=== PATIENT | female | born 1955 | race Caucasian/White ===

== ENCOUNTER → 2017-11-11 | Outpatient (CLI) | payer OTHER ==
[~2017-11-11] MED LIST: BROM500T3 PO; FOLI1TAB57 PO; HYDR-3062 PO; OMG1KC PO
--- NOTE | 2017-11-13 22:24 | Diagnostic Imaging Report ---
Digital mammogram bilateral screening with tomosynthesis The study was compared to the prior exam of 03/30/2009. At this time, there are no current complaints. The current study was also evaluated with a Computer Aided Detection (CAD) system. FINDINGS: There are scattered fibroglandular densities in both breasts which could obscure a lesion. Overall, there does not appear to have been any significant change when compared to the prior exam. No primary or secondary sign of malignancy is noted. IMPRESSION: 1. There is no radiographic evidence for malignancy. 2. The patient should have her annual bilateral screening mammogram on schedule in November of 2018. ACR BI-RADS Category 1: Negative. Result letter will be mailed to the patient. Note: At least 10% of breast cancer is not imaged by mammography. Dictated by: Dictated on workstation # [id number]
== END ==
LOC: RAD 10:29
PROVIDERS: ATTEND Nurse Practitioner Community Health
DX: Z12.31 Encounter for screening mammogram for malignant neoplasm of breast (principal)
CPT/HCPCS: 77067

== ENCOUNTER 2017-11-29 05:34 | Outpatient (CLI) | payer OTHER ==
[~2017-11-29] VITALS: Ht 175.3 cm; Wt 129.3 kg
[~2017-11-29 05:34] MED LIST changes: -BROM500T3 PO; -FOLI1TAB57 PO; -OMG1KC PO
[2017-11-29] MEDS ORDERED: FOLI1TAB57 PO (13:40)
[2017-11-29] MEDS ORDERED: BROM500T3 PO (13:40)
[2017-11-29] MEDS ORDERED: OMG1KC PO (13:40)
== END 2017-11-29 13:41 | disposition home or self-care (01) ==
LOC: PREOP 05:34
PROVIDERS: ATTEND Internal Medicine
DX: Z01.818 Encounter for other preprocedural examination (principal)

== ENCOUNTER 2017-12-06 07:27 | Day surgery (SDC) | payer OTHER ==
--- NOTE | 2017-11-21 06:50 | HISTORY AND PHYSICAL ---
DATE OF SERVICE: Colonoscopy H and P HISTORY OF PRESENT ILLNESS: The patient is a 62-year-old white female, referred by Dr. Triplett, for screening colonoscopy. She was seen in the emergency room ER on 10/18/2017, due to some generalized abdominal pain. It was noted that she had some thickening in the ascending colon, felt to be either localized diverticulitis or colitis. She was placed on a bland diet and was not having any other infectious symptoms, so antibiotics were not recommended. She did not have any associated nausea. She did have evidence for cholelithiasis, but no CT findings for cholecystitis and her pain was lowered more where her ascending colonic thickening was noted than right upper quadrant. She reports that she has been on a diet with her significant other and she has lost 80 pounds over the past year and other than her episode in October, had actually been feeling better. She has had no bowel habit change and has noted no melena or bright red blood per rectum. PAST MEDICAL HISTORY: Significant for obesity. She is not currently taking any prescription medication, does take fish oil supplement and a multiple vitamin daily. FAMILY HISTORY: Father at the age of 75, complications from diabetes and a heart attack. Mother at the age of 75 as well with complications of COPD with significant smoking history. She has one sister with type 1 diabetes, three brothers, one of whom has diabetes. There are multiple family members who are factor V Leiden positive, but she is reportedly negative. SOCIAL HISTORY: She has a past [id number] smoking history, but quit in 2003. She reports 2 to 3 drinks per week with no past history of heavy alcohol consumption. PAST SURGICAL HISTORY: In the distant past, she had parotid tumor resection reportedly benign and had right lateral meniscal tear repair in 2014, per Dr. Austin. PHYSICAL EXAMINATION: GENERAL: Reveals a pleasant white female, appears to be in no acute distress. VITAL SIGNS: Initial blood pressure was 156/98, at the end of the interview, down to 140/88. HEENT: Unremarkable. Sclerae were nonicteric. There is no evidence for pallor. NECK: Revealed no JVD, adenopathy or bruits. CHEST: Clear to auscultation. CARDIOVASCULAR: Reveals a regular rate and rhythm without murmur, S3 or S4. ABDOMEN: Soft, supple without mass, organomegaly or tenderness. There is a small umbilical hernia that is reducible and nontender. No erythema or induration is noted. EXTREMITIES: Reveal no cyanosis, clubbing or edema. INDICATION: The patient was seen in the office on 11/11/2017. ASSESSMENT AND PLAN: The patient is set up for screening colonoscopy toward the end of November, earlier date was offered and she is set up for December 06. Prep instructions with Suprep kit were given and questions were answered. In reviewing her electronic medical record on today's evaluation, little over 40 minutes care time spent, 30 of it face to face. Other 10 to 15 minutes of staff time spent in setting up the procedure and going over prep instructions with the Suprep kit. I thank you for the referral of this pleasant lady. Job ID: [id number] DocumentID: [id number] Dictated Date: 11/12/2017 11:49:26 Clearance Cutter Date: 11/12/2017 13:40:26 Dictated By: STEFAN SAENZ MD MTDD
[~2017-12-06] VITALS: Ht 175.3 cm; Wt 129.3 kg
[~2017-12-06 07:27] MED LIST changes: +BROM500T3 PO; +FOLI1TAB57 PO; +OMG1KC PO
[2017-12-06] MEDS ORDERED: D5 LR IV SOLUTION 1,000 ML IV ONE (07:45)
[2017-12-06] MEDS ORDERED: D5 LR IV SOLUTION 1,000 ML IV STA (07:51)
[2017-12-06 07:54] VITALS: BP 127/76
[2017-12-06] MEDS ORDERED: NALOXONE 0.4 MG/ML 1 ML (NARCAN) VIAL IVP PRN (08:00)
[2017-12-06] MEDS ORDERED: LIDOCAINE JELLY 2% (XYLOCAINE) 5 ML TUBE MM PRN (08:00)
[2017-12-06] MEDS ORDERED: FLUMAZENIL (ROMAZICON) 0.1 MG/ML 5 ML VIAL INJ PRN (08:00)
[2017-12-06] MEDS ORDERED: MIDAZOLAM 2 MG/2 ML (VERSED) VIAL IVP PRN (08:00)
--- NOTE | 2017-12-06 08:01 | Pre-Op Note & Conscious Sedat ---
Pre-Operative Progress Note H&P Reviewed The H&P was reviewed, patient examined and no changes noted. Date H&P Reviewed: Dec 06, 2017 Time H&P Reviewed: 08:00 Conscious Sedation Pre-Proced ASA Class: 2 Airway Mallampati Classification: (choct[place] appropriate class) I. II. III, IV Lungs Heart ASA score ASA 1: a normal healthy patient ASA 2: a patient with a mild systemic disease (mid diabetes, controlled hypertension, obesity ASA 3: a patient with a severe systemic disease that limits activity (angina , COPD, prior Myocardial infarction) ASA 4: a patient with an incapacitating disease that is a constant threat to life (CHF, renal failure) ASA 5: a moribund patient not expected to survive 24 hrs. (ruptured aneurysm) ASA 6: a declared brain patient whose organs are being harvested. For emergent operations, add the letter E after the classification Grade 3 Sedation Plan: Analgesia, Amnesia, Plan communicated to team members, Discussed options with patient/fam, Discussed risks with patient/fam Note The patient is an appropriate candidate to undergo the planned procedure, sedation, and anesthesia. The patient immediately re-assessed prior to indication. STEFAN SAENZ MD Dec 06, 2017 08:01
[2017-12-06] MEDS ORDERED: MIDAZOLAM 2 MG/2 ML (VERSED) VIAL ONE (08:52)
[2017-12-06] MEDS ORDERED: fentaNYL INJECTION 100 MCG/2 ML AMP ONE (08:52)
[2017-12-06] MEDS ORDERED: LIDOCAINE JELLY 2% (XYLOCAINE) 5 ML TUBE ONE (08:53)
[2017-12-06] MEDS ORDERED: ONDANSETRON 4 MG/2 ML (SDV) Z0FRAN ONE (09:03)
[2017-12-06] MEDS: fentaNYL INJECTION 100 MCG/2 ML AMP IVP PRN ×2 (09:07→09:15)
[2017-12-06 09:40] VITALS: BP 151/66
[2017-12-06] MEDS ORDERED: ONDANSETRON 4 MG/2 ML (SDV) Z0FRAN IVP ONE (09:45)
[2017-12-06 10:10] VITALS: BP 133/76
[2017-12-06 10:35] VITALS: BP 133/76
--- NOTE | 2017-12-06 17:04 | OPERATIVE REPORT ---
DATE OF SERVICE: INDICATION FOR THE PROCEDURE: Screening colonoscopy. The patient was placed in left lateral decubitus position. Prior to undergoing colonoscopy, digital rectal evaluation was performed. Anal sphincter tone was normal with perianal reflexes intact. No abnormalities, no additional inspection of anal canal or distal rectal vault. The colonoscope was then inserted into the rectum under direct visualization, advanced to the cecum. The cecum was identified by identification of the ileocecal valve and cecal strap. Photographic documentation obtained. Careful inspection was made as the colonoscope withdrawn. The patient tolerated the procedure well. FINDINGS: There was no evidence for internal or external hemorrhoids. Present in the distal rectum was a diminutive 2 mm sessile polyp. It was photographed and biopsied and ablated with no subsequent blood loss. Remainder of the rectum was unremarkable. Moderate number of small to medium size diverticulum without evidence to suggest diverticulitis with moderate haustral hypertrophy. No other sigmoid colonic abnormalities were appreciated. The descending colon was unremarkable as was the transverse colon. Present in the distal ascending colon was a diminutive polyp. It was photographed, biopsied and ablated with no subsequent blood loss. Remainder of the ascending colon and cecum were unremarkable. ASSESSMENT: 1. Moderate diverticular disease confined to the sigmoid colon was present without evidence for diverticulitis. 2. Two diminutive polyps were removed, one from the distal rectum and one from the distal ascending colon via hot forceps with no subsequent blood loss. The previous CT noted findings of ascending colonic thickening/inflammatory change resolved with no endoscopic abnormalities noted in these areas today. I thank you for the referral of this pleasant lady. Job ID: [id number] DocumentID: [id number] Dictated Date: 12/06/2017 09:52:16 News Assistant Date: 12/06/2017 17:03:37 Dictated By: STEFAN SAENZ MD [facility]
== END 2017-12-06 10:35 | disposition home or self-care (01) ==
LOC: ENDO 07:27
PROVIDERS: ATTEND Internal Medicine
DX: Z12.11 Encounter for screening for malignant neoplasm of colon (principal); D12.2 Benign neoplasm of ascending colon; K62.1 Rectal polyp; K57.30 Diverticulosis of large intestine without perforation or abscess without bleeding; E66.9 Obesity, unspecified; Z68.41 Body mass index [BMI] 40.0-44.9, adult; Z87.891 Personal history of nicotine dependence
CPT/HCPCS: 88305

== ENCOUNTER → 2018-02-19 | Outpatient (CLI) | payer OTHER ==
[~2018-02-19] MED LIST changes: +IOHEXOL 350 MG/ML 150 ML (OMNIPAQUE 350) VIAL IV ONE; +NS 250 ML (IVPB) BAG IV ONE
--- NOTE | 2018-02-19 17:44 | Diagnostic Imaging Report ---
INDICATION: Chest pain x4 days. TECHNIQUE: CTA chest obtained with IV contrast bolus and axial slices and MIP reconstructions. COMPARISON: There is no previous study for comparison. FINDINGS: There are no enlarged mediastinal or hilar nodes. Pulmonary parenchymal vessels are opacified with no overt pulmonary emboli. The thoracic aorta shows no evidence of aneurysm or dissection. Great vessel origins are patent. There is a normal variant with the left vertebral artery arising directly from the arch. There are calcified nodes in the right hilum and subcarinal region, compatible with old granulomatous disease. There are calcified granulomata in the right lower lobe. There is no pleural or pericardial fluid. Visualized portions of the upper abdomen demonstrate multiple gallstones. There is fatty infiltration of the liver. Lung parenchymal windows demonstrate no pulmonary parenchymal infiltrates or masses, aside from the calcified granulomata in the right lower lobe mentioned above. Incidental note is made of a 1.3 cm right thyroid nodule, this can be followed sonographically. There are calcified granulomata in the spleen. IMPRESSION: No CT evidence of pulmonary emboli or aortic dissection. Old granulomatous changes. No focal infiltrate or pleural fluid. Incidental note is made of a 1.3 cm nodule in the right thyroid lobe, this can be followed with thyroid ultrasound. Fatty infiltration of the liver. Cholelithiasis. Dictated by: Dictated on workstation # [id number]
== END ==
LOC: RAD 15:28
PROVIDERS: ATTEND Internal Medicine
DX: R07.9 Chest pain, unspecified (principal); K80.20 Calculus of gallbladder without cholecystitis without obstruction; K76.0 Fatty (change of) liver, not elsewhere classified; E04.1 Nontoxic single thyroid nodule
CPT/HCPCS: 71275

== ENCOUNTER → 2018-03-20 | Outpatient (CLI) | payer OTHER ==
[~2018-03-20] MED LIST changes: -IOHEXOL 350 MG/ML 150 ML (OMNIPAQUE 350) VIAL IV ONE; -NS 250 ML (IVPB) BAG IV ONE
== END ==
LOC: CARD 09:32
PROVIDERS: ATTEND Internal Medicine Interventional Cardiology
DX: R94.31 Abnormal electrocardiogram [ECG] [EKG] (principal); R07.89 Other chest pain; R73.03 Prediabetes; E78.5 Hyperlipidemia, unspecified; I10 Essential (primary) hypertension; E66.01 Morbid (severe) obesity due to excess calories; Z68.41 Body mass index [BMI] 40.0-44.9, adult
CPT/HCPCS: 93306

== ENCOUNTER → 2018-03-27 | Outpatient (CLI) | payer OTHER ==
[~2018-03-27] VITALS: Ht 172.7 cm; Wt 133.8 kg
[~2018-03-27] MED LIST changes: +CATHETER FLUSH 10 ML SYR IV PRN; +REGADENOSON 0.4 MG/5 ML SYR (LEXISCAN) IV ONE
[2018-03-27 09:11] VITALS: BP 158/80
[2018-03-27 09:25] VITALS: BP 167/92
--- NOTE | 2018-03-31 11:23 | Cardiology Stress Test Report ---
Stress Test Report Type of NM Stress Test: Test Type: LEXISCAN 0.4MG/5ML Date of Procedure/Referring: Date of Procedure: Mar 27, 2018 PCP Krystal Oneal MD Admitting Physician Kristie Knox MD Indications: Chest pain, abnormal EKG Baseline Heart Rate: 74 Baseline Blood Pressure: Blood Pressure Systolic: 167 Blood Pressure Diastolic: 92 Baseline EKG: Baseline EKG: sinus rhythm Summary & Conclusion: Summary: The patient was brought to the stress lab after informed consent was taken. Stress test was performed according to the Lexiscan protocol. 0.4 mg of IV Lexiscan was given. Low-grade exercise was performed. Baseline EKG showed sinus rhythm at 74 BPM. Initial blood pressure was 166/88 mmHg. Maximum heart rate was 115 bpm and blood pressure 174/90 mmHg. Patient did not have any chest pain, arrhythmias or ST segment changes during the stress test. 10.53 mCi of Myoview were given for rest imaging and 31.2 mCi of Myoview given for stress imaging. Transient ischemic dilatation score 1.07, EF 64 percent. Normal wall motion. Mild intensity, intermediate size anterior/apical reversible defect. SSS 11. Conclusion: Pharmacological stress test was negative for ischemia. Normal LV function with no wall motion abnormalities. Evidence of anterior-apical ischemia, coronary angiography is recommended. Krystal ONEAL MD Mar 31, 2018 11:23
== END ==
LOC: CARD 07:31
PROVIDERS: ATTEND Internal Medicine Interventional Cardiology
DX: R94.31 Abnormal electrocardiogram [ECG] [EKG] (principal); R07.89 Other chest pain; E78.5 Hyperlipidemia, unspecified; I10 Essential (primary) hypertension; R73.03 Prediabetes; E66.01 Morbid (severe) obesity due to excess calories; Z68.41 Body mass index [BMI] 40.0-44.9, adult
CPT/HCPCS: 78452; 93017

== ENCOUNTER 2018-04-07 07:51 | Day surgery (SDC) | payer OTHER ==
[2018-04-07] VITALS (10 sets, daily range): BP systolic 129–144; BP diastolic 73–103
[~2018-04-07] VITALS: Ht 172.7 cm; Wt 133.8 kg
[~2018-04-07 07:51] MED LIST changes: -CATHETER FLUSH 10 ML SYR IV PRN; -REGADENOSON 0.4 MG/5 ML SYR (LEXISCAN) IV ONE
--- OUTSIDE RECORDS SUMMARY | 2018-04-07 07:54 | XMS REPORT ---
Author Author PIA MAURICIO [facility] Address [address] [place] [id number] Care Team Providers Care Auto Carrier Driver Name Role Phone PIA MAURICIO Unavailable PROBLEMS Type Condition ICD9-CM Code XCT78-ND Code Onset Dates Condition Status SNOMED Code Problem PPV23 (PNEUMOVAX) DX V03.82 Active 78179635 Problem Need for prophylactic vaccination and inoculation, Influenza V04.81 Active 233522840 Problem ZOSTAVAX DX V05.8 Active 21148423 Problem DTAP TEST V06.1 Active ALLERGIES No Information ENCOUNTERS Encounter Location Date Diagnosis [facility] [address] [address] Mar, 2018 Encounter for immunization Z23 [facility] [address] [id number] [place] [address] Feb Encounter for immunization Z23 [facility] [address] [address] October, [facility] [id number] [place] [address] Jul, Dental examination Z01.20 [facility] [id number] [place] [address] [id number] Jul, Dental caries K02.9 and Tooth fracture with loss of restorative material K08.531 [facility] [address] [id number] Jun, Dental examination Z01.20 [facility] [id number] [place] [address] Jun, [facility] [address] [id number] Jun, Pneumonia of left upper lobe due to infectious organism J18.1 ; BMI 40.0-44.9, adult Z68.41 and Cough R05 [facility] [id number] [place] [phone] Apr, [facility] [id number] [place] [address] [id number] Mar, Encounter for immunization Z23 [facility] [address] [address] Jan, [facility] [address] [address] Jul, Dental examination Z01.20 [facility] [id number] [place] [address] [id number] Jul, Encounter for immunization Z23 [facility] [address] [id number] Mar, Encounter for immunization Z23 [facility] [id number] [place] [address] [phone] Dec, Visit for TB skin test Z11.1 [facility] [id number] [place] [address] [phone] October, Other specified disorders of Eustachian tube, unspecified ear H69.80 and Chronic serous otitis media of both ears H65.23 [facility] [id number] [place] [address] [phone] October, [facility] [id number] [place] [address] [id number] Sep, Osteoarthritis of right knee M17.9 [facility] [id number] [place] [address] Aug, [facility] [address] [place] [address] [id number] Aug, Encounter for dental examination Z01.20 [facility] [address] [id number] [phone] May, Encounter for dental examination Z01.20 [facility] [id number] [place] [address] [id number] May, Dental examination Z01.20 [facility] [id number] [place] [phone]- [phone] Mar, Encounter for immunization Z23 [facility] [id number] [place] [address] [id number]- [phone] Mar, [facility] [id number] [place] [address] Mar, Edema, unspecified R60.9 [facility] [id number] [place] [address] [id number] Feb, Dental examination V72.2 [facility] [id number] [place] [address] Jan, Pain in right knee 719.46 and Fall at home E888.9 [facility] [id number] [place] [address] Jan, [facility] [id number] [place] [address]- [address] Jan, Knee pain, right 719.46 [facility] [id number] [place] [address]- [address] Jan, Knee pain, right 719.46 [facility] [id number] [place] [id number] 2546 Jan, Arthritis of left hand 716.94 [facility] [id number] [place] [address] [id number] Dec, Dental examination V72.2 [facility] [id number] [place] [address] [phone]- [address] 14 Sep, 2014 [facility] [id number] [place] [address] Sep, [facility] [place] [facility] [address] [id number] [place] [address] Jul, [facility] [place] [facility] [address] [id number] [id number] Jul, [facility] [place] [facility] [address] [id number] [place] [address] Jul, [facility] [place] [facility] [address] [id number] [place] [address] Jul, [facility] [place] [facility] [address] [id number] [place] [address] May, [facility] [place] [facility] [address] [id number] [place] [address] May, [facility] [place] [facility] [address] [id number] [place] [address] Feb, [facility] [place] [facility] [address] [id number] [place] [address] Feb, [facility] [place] [facility] [address] [id number] [place] [address] October, [facility] [place] [facility] [address] [id number] [place] [address] October, [facility] [place] [facility] [address] [id number] [place] [address] October, [facility] [place] [facility] [address] [id number] [place] [address] October, [facility] [place] [facility] [address] [id number] [place] [address] October, [facility] [place] [facility] [address] [id number] [place] Aug, [facility] [place] [facility] [address] [id number] [id number] [address] Aug, [facility] [place] [facility] [address] [facility] [id number] [place] [address] Mar, [facility] [address] [id number] [address] Apr, [facility] [address] [id number] [address] Apr, [facility] [address] [id number] [address] Dec, [facility] [address] [id number] [address] Nov, [facility] [address] [id number] [address] October, [facility] [address] [id number] [address] October, IMMUNIZATIONS Vaccine Route Administration Date Status FLULAVAL QUAD 0.5ML (6 MO & UP) 2018 IM Intramuscular Mar 03, 2018 Administered SOCIAL HISTORY Never Assessed REASON FOR VISIT Flu shot-GABE Wang PLAN OF CARE VITAL SIGNS MEDICATIONS Unknown Medications RESULTS No Results PROCEDURES Procedure Date Ordered Result Body Site FLULAVAL QUAD 0.5ML (6 MO AND UP) 2018 Mar 03, 2018 SINGLE IMMUNIZATION ADMIN Mar 03, 2018 INSTRUCTIONS MEDICATIONS ADMINISTERED No Known Medications MEDICAL (GENERAL) HISTORY Type Description Date Medical History Mitral Valve Prolapse Surgical History tubal 1992 Surgical History parotid tumor left side 1996 Hospitalization History parotid tumor 1996
--- OUTSIDE RECORDS SUMMARY | 2018-04-07 07:54 | XMS REPORT ---
Author Author OLIVERIO Arguelles Organization [facility] Address [address] [place] [address] Care Team Providers Care Supervisor Powdered Metal Name Role Phone OLIVERIO Arguelles Unavailable PROBLEMS Type Condition ICD9-CM Code [id number] Code Onset Dates Condition Status SNOMED Code Problem PPV23 (PNEUMOVAX) DX V03.82 Active 25124024 Problem Need for prophylactic vaccination and inoculation, Influenza V04.81 Active 217837138 Problem ZOSTAVAX DX V05.8 Active 51817341 Problem DTAP TEST V06.1 Active ALLERGIES Substance Reaction Event Type Date Status Penicillin V Potassium Unknown Drug Allergy Jul, Active ENCOUNTERS Encounter Location Date Diagnosis [facility] [place] [id number] [place] [address] 64524- [address]502 October, [facility] [place] [address] [address]- [address]98 Jul, Dental examination Z01.20 [facility] [id number] [place] [address] [id number] Jul, Dental caries K02.9 and Tooth fracture with loss of restorative material K08.531 [facility] [id number] [place] [address] [id number] Jun, Dental examination Z01.20 [facility] [place] [id number] [place] [address] 56761- 7866 Jun, [facility] [address] [id number] Jun, Pneumonia of left upper lobe due to infectious organism J18.1 ; BMI 40.0-44.9, adult Z68.41 and Cough R05 [facility] [place] [address] [place] [address] Apr, [facility] [id number] [place] [address] [id number] Mar, Encounter for immunization Z23 [facility] [place] [id number] [place] [address] 94684- 2546 Jan, [facility] [place] [id number] [place] [address] 73677- 5166 Jul, Dental examination Z01.20 [facility] [id number] [place] [address] [id number] Jul, Encounter for immunization Z23 [facility] [id number] [place] [address] [id number] Mar, Encounter for immunization Z23 [facility] [place] [id number] [place] [address] 29670- 2966 Dec, Visit for TB skin test Z11.1 [facility] [id number] [place] [address] [id number] October, Other specified disorders of Eustachian tube, unspecified ear H69.80 and Chronic serous otitis media of both ears H65.23 [facility] [place] [address] [place] [address] 35689- 6506 October, [facility] [place] [address] [place] [address] [phone] Sep, Osteoarthritis of right knee M17.9 [facility] [place] [id number] [place] [address] [phone] Aug, [facility] [address] [place] [address] [id number] Aug, Encounter for dental examination Z01.20 [facility] [address] [phone] May, Encounter for dental examination Z01.20 [facility] [id number] [place] [address] [phone] May, Dental examination Z01.20 [facility] [place] [address] [address] 5758 Mar, Encounter for immunization Z23 [facility] [place] [id number] [place] [address] 253496- 5626 Mar, [facility] [place] [id number] [place] [address] 84040- 7896 Mar, Edema, unspecified R60.9 [facility] [id number] [place] [address] [phone] Feb, Dental examination V72.2 [facility] [place] [id number] [place] [address] 87473- 1046 Jan, Pain in right knee 719.46 and Fall at home E888.9 [facility] [place] [id number] [place] [address] 06956- 9425 Jan, [facility] [place] [id number] [place] [address] 09535- 3341 Jan, Knee pain, right 719.46 [facility] [place] [id number] [place] [address] 59347- 3978 Jan, Knee pain, right 719.46 [facility] [place] [id number] [place] [address] 03300- 3616 Jan, Arthritis of left hand 716.94 [facility] [id number] [place] [address] [phone] Dec, Dental examination V72.2 [facility] [place] [id number] [place] [address] [phone]- [phone] Sep, [facility] [place] [id number] [place] [address] 302926- 6761 Sep, [facility] [place] [id number] [place] [address] 30985- 4518 Jul, [facility] [place] [facility] [address] [id number] [place] [address]- 7292 Jul, [facility] [place] [facility] [address] [id number] [place] [address]- 0056 Jul, [facility] [place] [facility] [address] [id number] [place] [address]- 9112 Jul, [facility] [place] [facility] [address] [id number] [place] [address] May, [facility] [place] [facility] [address] [id number] [place] [address]- 5240 May, [facility] [place] [facility] [address] [id number] [place] [address]- 8071 Feb, [facility] [place] [facility] [address] [id number] [place] [address]- 3062 Feb, [facility] [place] [facility] [address] [id number] [place] [address]- 3476 October, [facility] [place] [facility] [address] [id number] [place] [address]- 7586 October, [facility] [place] [facility] [address] [id number] [place] [address]- 4920 October, [facility] [place] [facility] [address] [id number] [place] [address]- 4432 October, [facility] [place] [facility] [address] [id number] [place] [address]- 8433 October, [facility] [place] [facility] [address] [id number] [place] [address] Aug, [facility] [place] [facility] [address] [id number] [place] [address]- 1823 Aug, [facility] [place] [facility] [address] [id number] [place] Mar, [facility] [place] [facility] [address] [id number] [place] [address]- 5006 Apr, [facility] [place] [address] [facility] [id number] [place] [address]- 2546 Apr, [facility] [place] [address] [facility] [id number] [address]- 2546 Dec, [facility] [place] [address] [facility] [id number] [place] [address]- 2546 Nov, [facility] [place] [address] [facility] [id number] [place] [address]- 2546 October, [facility] [place] [address] [facility] [id number] [place] [address]- 2546 October, IMMUNIZATIONS No Known Immunizations SOCIAL HISTORY Never Assessed REASON FOR VISIT PLAN OF CARE Activity Details Follow Up prn Reason:restorative VITAL SIGNS MEDICATIONS Medication Instructions Dosage Frequency Start Date End Date Duration Status Ventolin HFA 108 (90 Base) MCG/ACT Inhalation every 6 hrs 2 puffs as needed 6h Jun, Not-Taking Zofran 8 MG Orally q 8 hours prn nausea 1 tablet Apr, 10 days Not-Taking Sudafed 60 mg Orally every 12 hrs 1 tablet as needed 12h October, Not-Taking RESULTS No Results PROCEDURES Procedure Date Ordered Result Body Site [facility] Employee/Board adjustment Aug 07, 2017 COMP ORAL EVALUATION - NEW/EST PT Aug 07, 2017 INTRAORL-PERIAPICAL 1 FILM 44811 Aug 07, 2017 PANORAMIC FILM SEE ALSO CODE 18964 Aug 07, 2017 BITEWINGS - FOUR FILMS Aug 07, 2017 Billing Notes on claim Aug 07, 2017 INTRAORL-PERIAPICAL EA ADD FILM Aug 07, 2017 INTRAORL-PERIAPICAL EA ADD FILM Aug 07, 2017 INTRAORL-PERIAPICAL EA ADD FILM Aug 07, 2017 INTRAORL-PERIAPICAL EA ADD FILM Aug 07, 2017 INSTRUCTIONS MEDICATIONS ADMINISTERED No Known Medications MEDICAL (GENERAL) HISTORY Type Description Date Medical History Mitral Valve Prolapse Surgical History tubal 1991 Surgical History parotid tumor left side 1996 Hospitalization History parotid tumor 1996
--- OUTSIDE RECORDS SUMMARY | 2018-04-07 07:54 | XMS REPORT ---
Author LEROY Hassan [facility] eClinicalWorks Address Unknown Phone Unavailable Care Team Providers Care Molding Technician Name Role Phone LEROY VARGAS CP Unavailable Allergies No Known Allergies Problems Problem Type Condition Code Onset Dates Condition Status Problem ZOSTAVAX DX V05.8 Active Problem Need for prophylactic vaccination and inoculation, Influenza V04.81 Active Problem PPV23 (PNEUMOVAX) DX V03.82 Active Problem DTAP TEST V06.1 Active Assessment Encounter for immunization Z23 Active Medications No Known Medications Procedures Procedure Coding System Code Date SINGLE IMMUNIZATION ADMIN CPT-4 45633 Mar 31, 2015 FLUARIX QUAD (3 & UP)-GSK-2014 CPT-4 84737 Mar 31, 2015 Results No Known Results Immunizations Vaccine Administration Date FLUARIX QUAD (3 & UP)-GSK-2014Mar 31, 2015 Summary Purpose eClinicalWorks Submission
--- OUTSIDE RECORDS SUMMARY | 2018-04-07 07:54 | XMS REPORT ---
Author Author YESENIA Maurice Organization [facility] Address [address] [place] [address] Care Team Providers Care Head Of Precision Targeting Name Role Phone YESENIA Maurice Unavailable PROBLEMS Type Condition ICD9-CM Code [id number] Code Onset Dates Condition Status SNOMED Code Problem PPV23 (PNEUMOVAX) DX V03.82 Active 82946878 Problem Need for prophylactic vaccination and inoculation, Influenza V04.81 Active 686710223 Problem ZOSTAVAX DX V05.8 Active 25439091 Problem DTAP TEST V06.1 Active ALLERGIES No Information ENCOUNTERS Encounter Location Date Diagnosis [facility] [address] [address]- [address] October, [facility] [address] [address]- [address] 28 Jul, 2017 Dental examination Z01.20 [facility] [address] [id number] Jul, Dental caries K02.9 and Tooth fracture with loss of restorative material K08.531 [facility] [address] [id number] Jun, Dental examination Z01.20 [facility] [address] [address]- [address]120 Jun, [facility] [place] [address] [id number] Jun, Pneumonia of left upper lobe due to infectious organism J18.1 ; BMI 40.0-44.9, adult Z68.41 and Cough R05 [facility] [address] [address]- 9180 Apr, [facility] [address] [id number] Mar, Encounter for immunization Z23 [facility] [id number] [place] [address] 97539- 2546 Jan, [facility] [id number] [place] [address] 25418- 2546 Jul, Dental examination Z01.20 [facility] [id number] [place] [address] [id number] Jul, Encounter for immunization Z23 [facility] [place] [id number] [place] [address] [id number] Mar, Encounter for immunization Z23 [facility] [id number] [place] [address] 01417- 2546 Dec, Visit for TB skin test Z11.1 [facility] [place] [id number] [place] [address] [phone] October, Other specified disorders of Eustachian tube, unspecified ear H69.80 and Chronic serous otitis media of both ears H65.23 [facility] [id number] [place] [address] 77842- 0646 October, [facility] [id number] [place] [address] [phone]- 2976 Sep, Osteoarthritis of right knee M17.9 [facility] [id number] [place] [address] 954295- 9353 Aug, [facility] [address] [id number] Aug, Encounter for dental examination Z01.20 [facility] [address] [place] [address] [phone] May, Encounter for dental examination Z01.20 [facility] [address] [id number] May, Dental examination Z01.20 [facility] [id number] [place] [address] 72805- 7809 22 Mar, 2015 Encounter for immunization Z23 [facility] [id number] [place] [address] 21015- 7753 14 Mar, 2015 [facility] [id number] [place] [address] 81873- 9085 Mar, Edema, unspecified R60.9 [facility] [address] [id number] Feb, Dental examination V72.2 [facility] [address] 89810- 2250 Jan, Pain in right knee 719.46 and Fall at home E888.9 [facility] [id number] [place] [address] 43384- 6501 Jan, [facility] [id number] [place] [address] 57251- 7380 Jan, Knee pain, right 719.46 [facility] [address] [address]90- 1253 Jan, Knee pain, right 719.46 [facility] [id number] [place] [address] 73427- 4341 Jan, Arthritis of left hand 716.94 [facility] [id number] [place] [address] [phone] Dec, Dental examination V72.2 [facility] [id number] [place] [address] 04474- 3994 Sep, [facility] [id number] [place] [address] 35668- 3503 Sep, [facility] [id number] [place] [address] 83658- [phone] Jul, [facility] [id number] [place] [address] 12898- 8081 Jul, [facility] [address] [id number] [place] [address]- 4783 Jul, [facility] [place] [facility] [address] [id number] [place] [address]- 5919 Jul, [facility] [place] [facility] [address] [id number] [place] [address]- 0117 May, [facility] [place] [facility] [address] [id number] [place] [address]- 7586 May, [facility] [place] [facility] [address] [id number] [place] [address]- 7389 Feb, [facility] [place] [facility] [address] [id number] [place] [address]- 7767 Feb, [facility] [place] [facility] [address] [id number] [place] [address]- 5272 October, [facility] [place] [facility] [address] [id number] [place] [address]- 0141 October, [facility] [place] [facility] [address] [id number] [place] [address]- 5282 October, [facility] [place] [facility] [address] [facility] [id number] [place] [address]- 9461 October, [facility] [place] [facility] [address] [id number] [place] [address]- 8117 October, [facility] [place] [facility] [address] [id number] [address]- 8667 Aug, [facility] [place] [facility] [address] [id number] [place]- 9132 Aug, [facility] [place] [facility] [address] [facility] [id number] [place] [address]- 5864 Mar, [facility] [place] [facility] [address] [facility] [id number] [place] [address]- 4268 Apr, [facility] [place] [facility] [address] [facility] [id number] [place] [address]- 2546 Apr, [facility] [address] [facility] [id number] [address]- 2546 Dec, [facility] [address] [facility] [id number] [address]- 2546 Nov, [facility] [address] [facility] [id number] [address]- 2546 October, [facility] [address] [facility] [id number] [address]- 4986 October, IMMUNIZATIONS No Known Immunizations SOCIAL HISTORY Never Assessed REASON FOR VISIT nausea PLAN OF CARE VITAL SIGNS MEDICATIONS Medication Instructions Dosage Frequency Start Date End Date Duration Status Zofran 8 MG Orally Twice a day prn nausea 1 tablet October, 30 day(s) Active RESULTS No Results PROCEDURES No Known procedures INSTRUCTIONS MEDICATIONS ADMINISTERED No Known Medications MEDICAL (GENERAL) HISTORY Type Description Date Medical History Mitral Valve Prolapse Surgical History tubal 1991 Surgical History parotid tumor left side 1996 Hospitalization History parotid tumor 1997
--- OUTSIDE RECORDS SUMMARY | 2018-04-07 07:55 | XMS REPORT ---
Author Author YESENIA IRIZARRY [facility] eClinicalWorks Address Unknown Phone Unavailable Care Team Providers Care Typesetting Machine Tender Name Role Phone YESENIA IRIZARRY CP Unavailable Allergies No Known Allergies Problems Problem Type Condition Code Onset Dates Condition Status Problem ZOSTAVAX DX V05.8 Active Problem Need for prophylactic vaccination and inoculation, Influenza V04.81 Active Problem PPV23 (PNEUMOVAX) DX V03.82 Active Problem DTAP TEST V06.1 Active Assessment Encounter for immunization Z23 Active Medications No Known Medications Procedures Procedure Coding System Code Date SINGLE IMMUNIZATION ADMIN CPT-4 34228 Mar 15, 2016 FLUARIX QUAD P-FREE 3 AND UP .50 2015 CPT-4 41231 Mar 15, 2016 Results No Known Results Immunizations Vaccine Administration Date FLUARIX QUAD P-FREE 3 AND UP .50 2015Mar 15, 2016 Summary Purpose eClinicalWorks Submission
--- OUTSIDE RECORDS SUMMARY | 2018-04-07 07:55 | XMS REPORT ---
Author Author YESENIA IRIZARRY Organization eClinicalWorks Address Unknown Phone Unavailable Care Team Providers Care Aurist Name Role Phone YESENIA IRIZARRY CP Unavailable Allergies No Known Allergies Problems Problem Type Condition ICD-9 Code Onset Dates Condition Status Problem ZOSTAVAX DX V05.8 Active Problem Need for prophylactic vaccination and inoculation, Influenza V04.81 Active Problem PPV23 (PNEUMOVAX) DX V03.82 Active Problem DTAP TEST V06.1 Active Assessment Knee pain, right 719.46 Active Medications No Known Medications Procedures Procedure Coding System Code Date X-RAY EXAM OF KNEE, 3 CPT-4 57529 Feb 04, 2015 Results No Known Results Summary Purpose eClinicalWorks Submission
--- OUTSIDE RECORDS SUMMARY | 2018-04-07 07:55 | XMS REPORT ---
Author Author YESENIA IRIZARRY [facility] Address [address] [place] [address] Care Team Providers Care Furniture Repair Technician Name Role Phone WANDA IRIZARRYYL Unavailable PROBLEMS Type Condition ICD9-CM Code PHZ97-RI Code Onset Dates Condition Status SNOMED Code Problem PPV23 (PNEUMOVAX) DX V03.82 Active 60463437 Problem Need for prophylactic vaccination and inoculation, Influenza V04.81 Active 837790907 Problem ZOSTAVAX DX V05.8 Active 39683953 Problem DTAP TEST V06.1 Active ALLERGIES No Information ENCOUNTERS Encounter Location Date Diagnosis [facility] [address] [address] October, [facility] [address] [address] Jul, Dental examination Z01.20 [facility] [address] [id number] Jul, Dental caries K02.9 and Tooth fracture with loss of restorative material K08.531 [facility] [address] [id number] Jun, Dental examination Z01.20 [facility] [address] [address] Jun, [facility] [address] [id number] Jun, Pneumonia of left upper lobe due to infectious organism J18.1 ; BMI 40.0-44.9, adult Z68.41 and Cough R05 [facility] [address] [address] Apr, [facility] [address] [id number] [id number] Mar, Encounter for immunization Z23 [facility] [id number] [place] [address]- [address] Jan, [facility] [address] [place] [address]- 2546 Jul, Dental examination Z01.20 [facility] [id number] [place] [address] [id number] Jul, Encounter for immunization Z23 [facility] [id number] [place] [address] [id number] Mar, Encounter for immunization Z23 [facility] [id number] [place] [address]- 2546 Dec, Visit for TB skin test Z11.1 [facility] [id number] [place] [address] [id number] October, Other specified disorders of Eustachian tube, unspecified ear H69.80 and Chronic serous otitis media of both ears H65.23 [facility] [id number] [place] [address]- 270[address] October, [facility] [id number] [place] [address] 17[address]- 2143 Sep, Osteoarthritis of right knee M17.9 [facility] [address] [place] [address]- [address] Aug, [facility] [address] [phone] Aug, Encounter for dental examination Z01.20 [facility] [address] [place] [address] [id number] May, Encounter for dental examination Z01.20 [facility] [address] [phone] May, Dental examination Z01.20 [facility] [address], [place] [address] Mar, Encounter for immunization Z23 [facility] [id number] [place] [address] 60762- 65[address] Mar, [facility] [id number] [place] [address]- [address] Mar, Edema, unspecified R60.9 [facility] [id number] [place] [address] [phone] Feb, Dental examination V72.2 [facility] [id number] [place] [address] 14[address]- 9[address] Jan, Pain in right knee 719.46 and Fall at home E888.9 [facility] [id number] [place] [address] 89[address]- 1309 Jan, [facility] [id number] [place] [address] 97353- 0708 Jan, Knee pain, right 719.46 [facility] [id number] [place] [address] 70349- 7793 Jan, Knee pain, right 719.46 [facility] [id number] [place] [address] 02183- 8281 Jan, Arthritis of left hand 716.94 [facility] [address] [place] [address] [phone] Dec, Dental examination V72.2 [facility] [address] [place] [address] 89358- 4115 Sep, [facility] [id number] [place] [address] 69828- 0765 Sep, [facility] [id number] [place] [address] 77713- 8554 Jul, [facility] [id number] [place] [address] 493[address]- [address] Jul, [facility] [place] [facility] [address] [id number] [place] Jul, [facility] [place] [facility] [address] [id number] [place] [address]- 459[address] Jul, [facility] [place] [facility] [address] [id number] [place] [address]- [address] May, [facility] [place] [facility] [address] [id number] [place] [address]- 8206 May, [facility] [place] [facility] [address] [id number] [place] [address]- 70[address] Feb, [facility] [place] [facility] [address] [id number] [place] [address]- 69[address] Feb, [facility] [place] [facility] [address] [id number] [place] [address]- 5703 October, [facility] [place] [facility] [address] [id number] [place] [address]- [address] October, [facility] [place] [facility] [address] [id number] [place] [address]- 28[address] October, [facility] [place] [facility] [address] [id number] [place] [address]- 63[address] October, [facility] [place] [facility] [address] [id number] [place] [address]- 3[address] October, [facility] [place] [facility] [address] [id number] [address] Aug, [facility] [place] [facility] [address] [id number] [place] [address]- 3649 Aug, [facility] [place] [facility] [address] [id number] [place] [address]- 7[address] Mar, [facility] [place] [facility] [address] [id number] [place] [address]- 1065 Apr, [facility] [place] [facility] [address] [facility] [id number] [place] [address]- 25[address] Apr, [facility] [address] [facility] [id number] [address]- [address] Dec, [facility] [address] [facility] [id number] [address]- [address] Nov, [facility] [address] [facility] [id number] [address] October, [facility] [address] [facility] [id number] [address] October, IMMUNIZATIONS No Known Immunizations SOCIAL HISTORY Never Assessed REASON FOR VISIT cough PLAN OF CARE VITAL SIGNS MEDICATIONS Medication Instructions Dosage Frequency Start Date End Date Duration Status PredniSONE 20 MG Orally Once a day 3 tablet x 2 days then 2 tabs x 3 days 24h Jun, Jul, 5 days Active RESULTS No Results PROCEDURES No Known procedures INSTRUCTIONS MEDICATIONS ADMINISTERED No Known Medications MEDICAL (GENERAL) HISTORY Type Description Date Medical History Mitral Valve Prolapse Surgical History tubal 1991 Surgical History parotid tumor left side 1996 Hospitalization History parotid tumor 1997
--- OUTSIDE RECORDS SUMMARY | 2018-04-07 07:55 | XMS REPORT ---
Author Author LEROY VARGAS [facility] eClinicalWorks Address Unknown Phone Unavailable Care Team Providers Care Inseam Trimmer Name Role Phone LEROY VARGAS CP Unavailable Allergies No Known Allergies Problems Problem Type Condition Code Onset Dates Condition Status Problem ZOSTAVAX DX V05.8 Active Problem Need for prophylactic vaccination and inoculation, Influenza V04.81 Active Problem PPV23 (PNEUMOVAX) DX V03.82 Active Problem DTAP TEST V06.1 Active Assessment Visit for TB skin test Z11.1 Active Medications No Known Medications Procedures Procedure Coding System Code Date TB INTRADERMAL TEST CPT-4 59391 December 26, 2015 Results No Known Results Summary Purpose eClinicalWorks Submission
--- OUTSIDE RECORDS SUMMARY | 2018-04-07 07:55 | XMS REPORT ---
Author Author TOY RIVERA Organization eClinicalWorks Address Unknown Phone Unavailable Care Team Providers Care Adoption Counselor Name Role Phone TOY RIVERA CP Unavailable Allergies, Adverse Reactions, Alerts Substance Reaction Event Type Penicillin V Potassium Info Not Available Drug Allergy Problems Problem Type Condition Code Onset Dates Condition Status Problem ZOSTAVAX DX V05.8 Active Problem Need for prophylactic vaccination and inoculation, Influenza V04.81 Active Problem PPV23 (PNEUMOVAX) DX V03.82 Active Problem DTAP TEST V06.1 Active Assessment Dental examination Z01.20 Active Medications No Known Medications Procedures Procedure Coding System Code Date INTRAORL-PERIAPICAL 1 FILM 84930 CPT-4 D0220 Jun 01, 2015 BITEWING - SINGLE FILM CPT-4 D0270 Jun 01, 2015 LTD ORAL EVALUATION - PROBLEM FOCUS CPT-4 D0140 Jun 01, 2015 [facility] Employee/Board adjustment CPT-4 [facility]EM Jun 01, 2015 Billing Notes on claim CPT-4 EC109 Jun 01, 2015 Vital Signs Date/Time: Jun 01, 2015 Blood Pressure Diastolic 72 mmHg Blood Pressure Systolic 111 mmHg Results No Known Results Summary Purpose eClinicalWorks Submission
--- OUTSIDE RECORDS SUMMARY | 2018-04-07 07:55 | XMS REPORT ---
Author Author YESENIA IRIZARRY Organization [facility] Address [address] [place] [address] Care Team Providers Care Fruit Loader Machine Operator Name Role Phone YESENIA IRIZARRY Unavailable PROBLEMS Type Condition ICD9-CM Code [id number] Code Onset Dates Condition Status SNOMED Code Problem Dental examination Z01.20 Active 965016634 Problem PPV23 (PNEUMOVAX) DX V03.82 Active Problem DTAP TEST V06.1 Active Problem Need for prophylactic vaccination and inoculation, Influenza V04.81 Active 861260267 Problem ZOSTAVAX DX V05.8 Active 48612917 ALLERGIES No Information SOCIAL HISTORY Never Assessed PLAN OF CARE VITAL SIGNS MEDICATIONS Unknown Medications RESULTS No Results PROCEDURES Procedure Date Ordered Result Body Site HEP A (PED/ADOL-2 DOSE) Jul 23, 2016 SINGLE IMMUNIZATION ADMIN Jul 23, 2016 IMMUNIZATIONS Vaccine Route Administration Date Status HEP A (PED/ADOL-2 DOSE) IM Intramuscular Jul 23, 2016 Administered MEDICAL (GENERAL) HISTORY Type Description Date Medical History Mitral Valve Prolapse Surgical History tubal 1992 Surgical History partiod tumor left side 1996
--- OUTSIDE RECORDS SUMMARY | 2018-04-07 07:55 | XMS REPORT ---
Author Author DAVIDSON HODGSON Organization e[employer]Works Address Unknown Phone Unavailable Care Team Providers Care Center Manager Name Role Phone DAVIDSON HODGSON CP Unavailable Allergies No Known Allergies Problems Problem Type Condition Code Onset Dates Condition Status Problem ZOSTAVAX DX V05.8 Active Problem Need for prophylactic vaccination and inoculation, Influenza V04.81 Active Problem PPV23 (PNEUMOVAX) DX V03.82 Active Problem DTAP TEST V06.1 Active Medications No Known Medications Results No Known Results Summary Purpose eClinicalWorks Submission
--- OUTSIDE RECORDS SUMMARY | 2018-04-07 07:55 | XMS REPORT ---
Author Author JOSTIN NORTH Organization e[employer]Works Address Unknown Phone Unavailable Care Team Providers Care Flatwork Catcher Name Role Phone JOSTIN NORTH CP Unavailable Allergies No Known Allergies Problems Problem Type Condition ICD-9 Code Onset Dates Condition Status Problem ZOSTAVAX DX V05.8 Active Problem Need for prophylactic vaccination and inoculation, Influenza V04.81 Active Problem PPV23 (PNEUMOVAX) DX V03.82 Active Problem DTAP TEST V06.1 Active Assessment Dental examination V72.2 Active Medications No Known Medications Procedures Procedure Coding System Code Date INTRAORL-PERIAPICAL 1 FILM 79296 CPT-4 D0220 January 04, 2015 BITEWING - SINGLE FILM CPT-4 D0270 January 04, 2015 LTD ORAL EVALUATION - PROBLEM FOCUS CPT-4 D0140 January 04, 2015 Dental no charge CPT-4 D0099 January 04, 2015 [facility] Employee/Board adjustment CPT-4 [facility]EM January 04, 2015 Results No Known Results Summary Purpose eClinicalWorks Submission
--- OUTSIDE RECORDS SUMMARY | 2018-04-07 07:55 | XMS REPORT ---
Author Author YESENIA IRIZARRY [facility] Address [address] [place] [address] Care Team Providers Care Speeder Frame Tender Name Role Phone YESENIA IRIZARRY Unavailable PROBLEMS Type Condition ICD9-CM Code AIL75-EC Code Onset Dates Condition Status SNOMED Code Problem PPV23 (PNEUMOVAX) DX V03.82 Active 77797713 Problem Need for prophylactic vaccination and inoculation, Influenza V04.81 Active 724117567 Problem ZOSTAVAX DX V05.8 Active 47858682 Problem DTAP TEST V06.1 Active ALLERGIES Substance Reaction Event Type Date Status Penicillin V Potassium Unknown Drug Allergy Jun, Active ENCOUNTERS Encounter Location Date Diagnosis [facility] [id number] [place] [address] October, [facility] [address] [address] 28 Jul, 2017 Dental examination Z01.20 [facility] [id number] [place] [address] [id number] 01 Jul, 2017 Dental caries K02.9 and Tooth fracture with loss of restorative material K08.531 [facility] [id number] [place] [address] [id number] Jun, Dental examination Z01.20 [facility] [id number] [place] [address] 25[address]- [address] 05 Jun, 2017 [facility] [address] [id number] Jun, Pneumonia of left upper lobe due to infectious organism J18.1 ; BMI 40.0-44.9, adult Z68.41 and Cough R05 [facility] [address] [address]- [address] Apr, [facility] [address] [id number] Mar, Encounter for immunization Z23 [facility] [address], [place] [address] Jan, [facility] [address] [place] [address] 00569- 5196 Jul, Dental examination Z01.20 [facility] [id number] [place] [address] [phone] Jul, Encounter for immunization Z23 [facility] [id number] [place] [address] [id number] Mar, Encounter for immunization Z23 [facility] [id number] [place] [address] 93259- 2546 Dec, Visit for TB skin test Z11.1 [facility] [id number] [place] [address] [id number] October, Other specified disorders of Eustachian tube, unspecified ear H69.80 and Chronic serous otitis media of both ears H65.23 [facility] [address] [place] [address] 77586- 7756 October, [facility] [address] [place] [address] 83215- 8804 Sep, Osteoarthritis of right knee M17.9 [facility] [address] [address] Aug, [facility] [address] [phone] Aug, Encounter for dental examination Z01.20 [facility] [address] [phone] May, Encounter for dental examination Z01.20 [facility] [id number] [place] [address] [phone] May, Dental examination Z01.20 [facility] [address], [place] [address]- [address] Mar, Encounter for immunization Z23 [facility] [id number] [place] [address] 588652- 4[address] Mar, [facility] [id number] [place] [address] 24563- 1241 Mar, Edema, unspecified R60.9 [facility] [id number] [place] [address] [phone] Feb, Dental examination V72.2 [facility] [id number] [place] [address] 402268- 5022 Jan, Pain in right knee 719.46 and Fall at home E888.9 [facility] [id number] [place] [address] 53573- 8074 Jan, [facility] [id number] [place] [address] 48429- 8515 Jan, Knee pain, right 719.46 [facility] [id number] [place] [address] 89506- 5856 Jan, Knee pain, right 719.46 [facility] [address], [place] [address]- [address] Jan, Arthritis of left hand 716.94 [facility] [address] [place] [address] [phone] Dec, Dental examination V72.2 [facility] [address], [place] [address]- 99[address] Sep, [facility] [id number] [place] [address] 983215- 2084 Sep, [facility] [address], [place] [address] 98[address] Jul, [facility] [id number] [place] [address]- 0[address] Jul, [facility] [address] [id number] [place] [address]- 4989 Jul, [facility] [place] [facility] [address] [id number] [place] [address]- 2716 Jul, [facility] [place] [facility] [address] [id number] [place] [address]- 7794 May, [facility] [place] [facility] [address] [id number] [place] [address]- 6077 May, [facility] [place] [facility] [address] [id number] [place] [address]- 7075 Feb, [facility] [place] [facility] [address] [id number] [place] [address]- 0248 Feb, [facility] [place] [facility] [address] [id number] [place] [address]- 6523 October, [facility] [address] [id number] [place] [address]- 9743 October, [facility] [place] [facility] [address] [id number] [place] [address]- 4409 October, [facility] [place] [facility] [address] [id number] [place] [address]- 7905 October, [facility] [place] [facility] [address] [id number] [place] [address]- 5182 October, [facility] [place] [facility] [address] [id number] [place] [address]- 8409 Aug, [facility] [place] [facility] [address] [id number] [place] [address]- 0713 Aug, [facility] [place] [facility] [address] [id number] [place] [address]- 5506 Mar, [facility] [place] [facility] [address] [id number] [place] [address]- 9723 Apr, [facility] [address] [facility] [id number] [address]- 2546 Apr, [facility] [address] [facility] [id number], [place] [address]- 2546 Dec, [facility] [address] [facility] [id number], [place] [address]- 2546 Nov, [facility] [address] [facility] [id number], [place] [address]- 2546 October, [facility] [address] [facility] [id number], [place] [address]- 1416 October, IMMUNIZATIONS No Known Immunizations SOCIAL HISTORY Never Assessed REASON FOR VISIT cough-TGuymonMA PLAN OF CARE Activity Details Follow Up prn Reason: VITAL SIGNS Height 69 in 2017-06-12 Weight 280 lbs 2017-06-12 Temperature 99.7 degrees Fahrenheit 2017-06-12 Heart Rate 108 bpm 2017-06-12 Respiratory Rate 22 2017-06-12 Oximetry 96 % 2017-06-12 BMI 41.34 kg/m2 2017-06-12 MEDICATIONS Medication Instructions Dosage Frequency Start Date End Date Duration Status Sudafed 60 mg Orally every 12 hrs 1 tablet as needed 12h October, Not-Taking Ventolin HFA 108 (90 Base) MCG/ACT Inhalation every 6 hrs 2 puffs as needed 6h Jun, Active Doxycycline Hyclate 100 MG Orally every 12 hrs 1 capsule 12h Jun, Jun, 5 day(s) Active Zofran 8 MG Orally q 8 hours prn nausea 1 tablet Apr, 10 days Not-Taking RESULTS No Results PROCEDURES Procedure Date Ordered Result Body Site MEASURE BLOOD OXYGEN LEVEL Jun 12, 2017 INSTRUCTIONS MEDICATIONS ADMINISTERED No Known Medications MEDICAL (GENERAL) HISTORY Type Description Date Medical History Mitral Valve Prolapse Surgical History tubal 1991 Surgical History parotid tumor left side 1996 Hospitalization History parotid tumor 1996
--- OUTSIDE RECORDS SUMMARY | 2018-04-07 07:55 | XMS REPORT ---
Author Author ROBYN CAICEDO [facility] eClinicalWorks Address Unknown Phone Unavailable Care Team Providers Care Tobacco Drying Machine Operator Name Role Phone ROBYN CAICEDO CP Unavailable Allergies, Adverse Reactions, Alerts Substance Reaction Event Type Penicillin V Potassium Info Not Available Drug Allergy Problems Problem Type Condition Code Onset Dates Condition Status Problem ZOSTAVAX DX V05.8 Active Problem Need for prophylactic vaccination and inoculation, Influenza V04.81 Active Problem PPV23 (PNEUMOVAX) DX V03.82 Active Problem DTAP TEST V06.1 Active Assessment Encounter for dental examination Z01.20 Active Medications No Known Medications Procedures Procedure Coding System Code Date INTRAORL-PERIAPICAL 1 FILM 18867 CPT-4 D0220 Jun 08, 2015 INTRAORL-PERIAPICAL EA ADD FILM CPT-4 D0230 Jun 08, 2015 COMP ORAL EVALUATION - NEW/EST PT CPT-4 D0150 Jun 08, 2015 [facility] Employee/Board adjustment CPT-4 [facility] Jun 08, 2015 PANORAMIC FILM SEE ALSO CODE 69087 CPT-4 D0330 Jun 08, 2015 INTRAORL-PERIAPICAL EA ADD FILM CPT-4 D0230 Jun 08, 2015 Billing Notes on claim CPT-4 EC109 Jun 08, 2015 BITEWINGS - THREE FILMS CPT-4 D0273 Jun 08, 2015 Vital Signs Date/Time: Jun 08, 2015 Blood Pressure Diastolic 81 mmHg Blood Pressure Systolic 131 mmHg Results No Known Results Summary Purpose eClinicalWorks Submission
--- OUTSIDE RECORDS SUMMARY | 2018-04-07 07:55 | XMS REPORT ---
Author Author DAVIDSON HODGSON Organization e[employer] Address Unknown Phone Unavailable Care Team Providers Care Production Tech Name Role Phone DAVIDSON HODGSON CP Unavailable Allergies No Known Allergies Problems Problem Type Condition Code Onset Dates Condition Status Problem ZOSTAVAX DX V05.8 Active Problem Need for prophylactic vaccination and inoculation, Influenza V04.81 Active Problem PPV23 (PNEUMOVAX) DX V03.82 Active Assessment Chronic serous otitis media of both ears H65.23 Active Problem DTAP TEST V06.1 Active Assessment Other specified disorders of Eustachian tube, unspecified ear H69.80 Active Medications Medication Code System Code Instructions Start Date End Date Status Dosage Sudafed [facility] [address]-84 60 mg Orally every 12 hrs October 10, 2015 1 tablet as needed Results No Known Results Summary Purpose eClinicalWorks Submission
--- OUTSIDE RECORDS SUMMARY | 2018-04-07 07:55 | XMS REPORT ---
Author Author KOKI RYAN Organization [facility] Address [address] [place] [address] Care Team Providers Care City Driver Name Role Phone KOKI RYAN Unavailable PROBLEMS Type Condition ICD9-CM Code XHE24-EO Code Onset Dates Condition Status SNOMED Code Problem PPV23 (PNEUMOVAX) DX V03.82 Active 77243597 Problem Need for prophylactic vaccination and inoculation, Influenza V04.81 Active 730074220 Problem ZOSTAVAX DX V05.8 Active 63043720 Problem DTAP TEST V06.1 Active ALLERGIES No Information ENCOUNTERS Encounter Location Date Diagnosis [facility] [address] [id number]- [address] 28 Jul, 2017 Dental examination Z01.20 [facility] [address] [id number] Jul, Dental caries K02.9 and Tooth fracture with loss of restorative material K08.531 [facility] [id number] [place] [address] [id number] Jun, Dental examination Z01.20 [facility] [address] [id number] 4097 Jun, [facility] [id number] [place] [address] [id number] Jun, Pneumonia of left upper lobe due to infectious organism J18.1 ; BMI 40.0-44.9, adult Z68.41 and Cough R05 [facility] [id number] [place] [address] 135362- 9091 Apr, [facility] [address] [id number] Mar, Encounter for immunization Z23 [facility] [address] [address] Jan, [facility] [address] [place] [address] 23481 2546 Jul, Dental examination Z01.20 [facility] [address] [id number] Jul, Encounter for immunization Z23 [facility] [id number] [place] [address] [id number] Mar, Encounter for immunization Z23 [facility] [id number] [place] [address] 29391- 4786 Dec, Visit for TB skin test Z11.1 [facility] [address] [place] [address] [id number] October, Other specified disorders of Eustachian tube, unspecified ear H69.80 and Chronic serous otitis media of both ears H65.23 [facility] [address] [place] [address] [id number]- 1376 October, [facility] [id number] [place] [address] 72894- 9496 Sep, Osteoarthritis of right knee M17.9 [facility] [address] [address] Aug, [facility] [address] [id number] [id number] Aug, Encounter for dental examination Z01.20 [facility] [address] [id number] [id number] May, Encounter for dental examination Z01.20 [facility] [address] [id number] May, Dental examination Z01.20 [facility] [address], [place] [address] 2546 Mar, Encounter for immunization Z23 [facility] [id number] [place] [address] 46948- 5527 14 Mar, 2015 [facility] [id number] [place] [address] 41728- 9188 Mar, Edema, unspecified R60.9 [facility] [id number] [place] [address] [id number] Feb, Dental examination V72.2 [facility] [id number] [place] [address] 48033- 1019 Jan, Pain in right knee 719.46 and Fall at home E888.9 [facility] [address] [address]68- 0970 Jan, [facility] [id number] [place] [address] 04597- 8434 Jan, Knee pain, right 719.46 [facility] [id number] [place] [address] 70393- 8014 Jan, Knee pain, right 719.46 [facility] [id number] [place] [address] 59514- 8495 Jan, Arthritis of left hand 716.94 [facility] [id number] [place] [address] [id number] Dec, Dental examination V72.2 [facility] [id number] [place] [address] 66382- 0314 Sep, [facility] [id number] [place] [address] 05120- 0088 Sep, [facility] [id number] [place] [address] 27535- 7670 Jul, [facility] [id number] [place] [address] 30894- 2106 Jul, [facility] [id number] [place] [address] 47115- 8483 Jul, [facility] [place] [facility] [address] [id number] [place] [address]- 8829 Jul, [facility] [place] [facility] [address] [id number] [place] [address]- 4366 May, [facility] [place] [facility] [address] [facility] [id number] [place] [address]- 8361 May, [facility] [place] [facility] [address] [id number] [place] [address]- 9643 Feb, [facility] [place] [facility] [address] [id number] [place] [address]- 7116 Feb, [facility] [place] [facility] [address] [id number] [place] [address]- 4263 October, [facility] [place] [facility] [address] [id number] [place] [address]- 5706 October, [facility] [place] [facility] [address] [id number] [place] [address]- 8577 October, [facility] [place] [facility] [address] [id number] [place] [address]- 6564 October, [facility] [place] [facility] [address] [id number] [place] [address]- 8970 October, [facility] [place] [facility] [address] [id number] [place] [address]- 8622 Aug, [facility] [place] [facility] [address] [id number], [place] [address] 7273 Aug, [facility] [place] [facility] [address] [id number] [place] [address]- 8502 Mar, [facility] [place] [facility] [address] [id number] [place] [address]- 9949 Apr, [facility] [place] [facility] [address] [id number] [place] [address]- 2546 Apr, [facility] [place] [facility] [address] [facility] [id number] [place] [address]- 2546 Dec, [facility] [address] [facility] [id number] [place] [address]- 2546 Nov, [facility] [address] [facility] [id number], [place] [address] 2546 October, [facility] [address] [facility] [id number] [place] [address]- 2546 October, IMMUNIZATIONS Vaccine Route Administration Date Status FLUARIX QUAD (3 AND UP) 2017 IM Intramuscular Mar 21, 2017 Administered SOCIAL HISTORY Never Assessed REASON FOR VISIT Flu Vaccine Adrien GOODMAN PLAN OF CARE VITAL SIGNS MEDICATIONS No Known Medications RESULTS No Results PROCEDURES Procedure Date Ordered Result Body Site FLUARIX QUAD (3 & UP)--2014Mar 21, 2017 SINGLE IMMUNIZATION ADMIN Mar 21, 2017 INSTRUCTIONS MEDICATIONS ADMINISTERED No Known Medications MEDICAL (GENERAL) HISTORY Type Description Date Medical History Mitral Valve Prolapse Surgical History tubal 1991 Surgical History parotid tumor left side 1996 Hospitalization History parotid tumor 1997
--- OUTSIDE RECORDS SUMMARY | 2018-04-07 07:56 | XMS REPORT ---
Author Author OLIVERIO Arguelles Organization [facility] Address [address] [place] [address] Care Team Providers Care Roller Coaster Designer Name Role Phone OLIVERIO Arguelles Unavailable PROBLEMS Type Condition ICD9-CM Code TGO64-RB Code Onset Dates Condition Status SNOMED Code Problem PPV23 (PNEUMOVAX) DX V03.82 Active 02548090 Problem Need for prophylactic vaccination and inoculation, Influenza V04.81 Active 168300663 Problem ZOSTAVAX DX V05.8 Active 31702731 Problem DTAP TEST V06.1 Active ALLERGIES Substance Reaction Event Type Date Status Penicillin V Potassium Unknown Drug Allergy Jun, Active ENCOUNTERS Encounter Location Date Diagnosis [facility] [address] [address] 14 Oct, 2017 [facility] [address] [address]- [address]659 28 Jul, 2017 Dental examination Z01.20 [facility] [address] [id number] 01 Jul, 2017 Dental caries K02.9 and Tooth fracture with loss of restorative material K08.531 [facility] [address] [id number] Jun, Dental examination Z01.20 [facility] [id number] [place] [address] 50041- 9926 05 Jun, 2017 [facility] [address] [id number] 03 Jun, 2017 Pneumonia of left upper lobe due to infectious organism J18.1 ; BMI 40.0-44.9, adult Z68.41 and Cough R05 [facility] [address] [place] [address] 2546 Apr, [facility] [id number] [place] [address] [id number] Mar, Encounter for immunization Z23 [facility] [id number] [place] [address] 20751- 2546 Jan, [facility] [id number] [place] [address] 16228- 7705 Jul, Dental examination Z01.20 [facility] [id number] [place] [address] [id number] Jul, Encounter for immunization Z23 [facility] [id number] [place] [address] [id number] Mar, Encounter for immunization Z23 [facility] [id number] [place] [address] 29551- 3436 Dec, Visit for TB skin test Z11.1 [facility] [id number] [place] [address] [id number] October, Other specified disorders of Eustachian tube, unspecified ear H69.80 and Chronic serous otitis media of both ears H65.23 [facility] [id number] [place] [address] 15650- 5586 October, [facility] [address] [place] [address] [id number]- 9621 Sep, Osteoarthritis of right knee M17.9 [facility] [id number] [place] [address] [id number]- 2879 Aug, [facility] [address] [place] [address] [id number] Aug, Encounter for dental examination Z01.20 [facility] [address] [id number] May, Encounter for dental examination Z01.20 [facility] [id number] [place] [address] [id number] May, Dental examination Z01.20 [facility] [address], [place] [address]- 5590 Mar, Encounter for immunization Z23 [facility] [id number] [place] [address] 10472- 7806 Mar, [facility] [id number] [place] [address] 735132- 8069 Mar, Edema, unspecified R60.9 [facility] [id number] [place] [address] [id number] Feb, Dental examination V72.2 [facility] [id number] [place] [address] 004924- 6436 Jan, Pain in right knee 719.46 and Fall at home E888.9 [facility] [id number] [place] [address] 38440- 4346 Jan, [facility] [id number] [place] [address] 29048- 3228 Jan, Knee pain, right 719.46 [facility] [id number] [place] [address] 86378- 3221 Jan, Knee pain, right 719.46 [facility] [id number] [place] [address] 50413- 2436 Jan, Arthritis of left hand 716.94 [facility] [address] [place] [address] [id number] Dec, Dental examination V72.2 [facility] [id number] [place] [address] 553143- 5602 Sep, [facility] [id number] [place] [address] 571757- 5518 Sep, [facility] [address] 1451 Jul, [facility] [address] [facility] [id number] [place] [address]- 8698 Jul, [facility] [place] [facility] [address] [id number] [place] 5760 Jul, [facility] [place] [facility] [address] [id number] [place] [address]- 2936 Jul, [facility] [place] [facility] [address] [id number] [place] [address]- 6192 May, [facility] [place] [facility] [address] [id number] [place]- 2671 May, [facility] [place] [facility] [address] [id number] [place] [address]- 2481 Feb, [facility] [place] [facility] [address] [id number] [place] [address]- 7611 Feb, [facility] [place] [facility] [address] [id number] [place] [address]- 7150 October, [facility] [place] [facility] [address] [id number] [place] [address]- 3989 October, [facility] [place] [facility] [address] [id number] [place] [address]- 3781 October, [facility] [place] [facility] [address] [id number] [place] [address]- 4157 October, [facility] [place] [facility] [address] [id number] [place] [address]- 6226 October, [facility] [place] [facility] [address] [id number] [place] [address]- 8983 Aug, [facility] [place] [facility] [address] [id number] [place]- 0172 Aug, [facility] [place] [facility] [address] [id number] [place] [address]- 5821 Mar, [facility] [place] [facility] [address] [id number] [place] [address]- 6151 Apr, [facility] [address] [facility] [id number] [place] [address]- 2546 Apr, [facility] [address] [facility] [id number], [place] [address]- 2546 Dec, [facility] [address] [facility] [id number], [place] [address]- 2546 Nov, [facility] [address] [facility] [id number], [place] [address]- 2546 October, [facility] [address] [facility] [id number], [place] [address] 2546 October, IMMUNIZATIONS No Known Immunizations SOCIAL HISTORY Never Assessed REASON FOR VISIT PLAN OF CARE Activity Details Follow Up prn Reason:TE #4 @924- 1 hour VITAL SIGNS Blood pressure systolic 110 mmHg 2017-06-24 Blood pressure diastolic 91 mmHg 2017-06-24 MEDICATIONS Medication Instructions Dosage Frequency Start Date End Date Duration Status Ventolin HFA 108 (90 Base) MCG/ACT Inhalation every 6 hrs 2 puffs as needed 6h Jun, Not-Taking Sudafed 60 mg Orally every 12 hrs 1 tablet as needed 12h October, Not-Taking Zofran 8 MG Orally q 8 hours prn nausea 1 tablet Apr, 10 days Not-Taking PredniSONE 20 MG Orally Once a day 3 tablet x 2 days then 2 tabs x 3 days 24h Jun, 4 Jul, 2017 5 days Not-Taking RESULTS No Results PROCEDURES Procedure Date Ordered Result Body Site LTD ORAL EVALUATION - PROBLEM FOCUS Jun 24, 2017 INTRAORL-PERIAPICAL 1 FILM 81404 Jun 24, 2017 [facility] Employee/Board adjustment Jun 24, 2017 Billing Notes on claim Jun 24, 2017 INSTRUCTIONS MEDICATIONS ADMINISTERED No Known Medications MEDICAL (GENERAL) HISTORY Type Description Date Medical History Mitral Valve Prolapse Surgical History tubal 1991 Surgical History parotid tumor left side 1996 Hospitalization History parotid tumor 1997
--- OUTSIDE RECORDS SUMMARY | 2018-04-07 07:56 | XMS REPORT ---
Author LEROY Hassan Organization [employer] Address Unknown Phone Unavailable Care Team Providers Care Plywood Layup Line Back Feeder Name Role Phone LEROY VARGAS CP Unavailable [...]
--- OUTSIDE RECORDS SUMMARY | 2018-04-07 07:56 | XMS REPORT ---
Author Author YESENIA IRIZARRY [facility] [employer] Address Unknown Phone Unavailable Care Team Providers Care Nutritionists Name Role Phone YESENIA IRIZARRY CP Unavailable Allergies, Adverse Reactions, Alerts Substance Reaction Event Type N.K.D.A. Info Not Available Non Drug Allergy Problems Problem Type Condition ICD-9 Code Onset Dates Condition Status Problem ZOSTAVAX DX V05.8 Active Problem Need for prophylactic vaccination and inoculation, Influenza V04.81 Active Problem PPV23 (PNEUMOVAX) DX V03.82 Active Assessment Fall at home E888.9 Active Problem DTAP TEST V06.1 Active Assessment Pain in right knee 719.46 Active Medications No Known Medications Procedures Procedure Coding System Code Date Office Visit, Est Pt., Level 3 CPT-4 38475 Feb 07, 2015 Results No Known Results Summary Purpose [employer] Submission
--- OUTSIDE RECORDS SUMMARY | 2018-04-07 07:56 | XMS REPORT ---
Author Author JAY OLIVEROS Organization [facility] Address [address] [place] [address] Care Team Providers Care Mirror Maker Name Role Phone JAY OLIVEROS Unavailable PROBLEMS Type Condition ICD9-CM Code GLV34-LH Code Onset Dates Condition Status SNOMED Code Problem PPV23 (PNEUMOVAX) DX V03.82 Active 03810453 Problem Need for prophylactic vaccination and inoculation, Influenza V04.81 Active 601307880 Problem ZOSTAVAX DX V05.8 Active 11849320 Problem DTAP TEST V06.1 Active ALLERGIES No Information ENCOUNTERS Encounter Location Date Diagnosis [facility] [address] [id number] 28 Jul, 2017 Dental examination Z01.20 [facility] [address] [id number] Jul, Dental caries K02.9 and Tooth fracture with loss of restorative material K08.531 [facility] [id number] [place] [address] [id number] Jun, Dental examination Z01.20 [facility] [address] [id number]- 9932 Jun, [facility] [id number] [place] [address] [id number] Jun, Pneumonia of left upper lobe due to infectious organism J18.1 ; BMI 40.0-44.9, adult Z68.41 and Cough R05 [facility] [id number] [place] [address] 904124- 4345 Apr, [facility] [address] [id number] Mar, Encounter for immunization Z23 [facility] [address] [address] 2546 Jan, [facility] [address] [place] [address] 16008- 1196 Jul, Dental examination Z01.20 [facility] [address] [id number] Jul, Encounter for immunization Z23 [facility] [id number] [place] [address] [id number] Mar, Encounter for immunization Z23 [facility] [id number] [place] [address] 04527- 8576 Dec, Visit for TB skin test Z11.1 [facility] [id number] [place] [address] [phone] October, Other specified disorders of Eustachian tube, unspecified ear H69.80 and Chronic serous otitis media of both ears H65.23 [facility] [address] [place] [address] [phone]- [phone] October, [facility] [id number] [place] [address] 85186- 9066 Sep, Osteoarthritis of right knee M17.9 [facility] [address] [address] Aug, [facility] [address] [id number] [phone] Aug, Encounter for dental examination Z01.20 [facility] [address] [id number] [phone] May, Encounter for dental examination Z01.20 [facility] [address] [place] [address] [phone] May, Dental examination Z01.20 [facility] [address], [place] [address] Mar, Encounter for immunization Z23 [facility] [address] [place] [address] 17980- 8690 14 Mar, 2015 [facility] [id number] [place] [address] 58364- 8346 Mar, Edema, unspecified R60.9 [facility] [id number] [place] [address] [phone] Feb, Dental examination V72.2 [facility] [id number] [place] [address] 60685- 9792 Jan, Pain in right knee 719.46 and Fall at home E888.9 [facility] [id number] [place] [address] 93737- 8282 Jan, [facility] [id number] [place] [address] 51459- 0018 Jan, Knee pain, right 719.46 [facility] [id number] [place] [address] 54680- 3113 Jan, Knee pain, right 719.46 [facility] [id number] [place] [address] 55616- 5799 Jan, Arthritis of left hand 716.94 [facility] [id number] [place] [address] [id number] Dec, Dental examination V72.2 [facility] [id number] [place] [address] 80343- 5274 Sep, [facility] [id number] [place] [address] 65522- 4192 Sep, [facility] [id number] [place] [address] 89039- 9675 Jul, [facility] [id number] [place] [address] 39207- 1092 Jul, [facility] [id number] [place] [address] 53430- 3801 Jul, [facility] [place] [facility] [address] [id number] [place] [address]- 9370 Jul, [facility] [place] [facility] [address] [id number] [place] [address]- 3220 May, [facility] [place] [facility] [address] [id number] [place] [address]- 9018 May, [facility] [place] [facility] [address] [id number] [place] [address]- 4264 Feb, [facility] [place] [facility] [address] [id number] [place] [address]- 1415 Feb, [facility] [place] [facility] [address] [id number] [place] [address]- 5942 October, [facility] [place] [facility] [address] [id number] [place] [address]79 October, [facility] [place] [facility] [address] [id number] [place] [address]- 1071 October, [facility] [place] [facility] [address] [id number] [place] [address]- 5891 October, [facility] [place] [facility] [address] [id number] [place] [address]- 1906 October, [facility] [place] [facility] [address] [id number] [place] [address] Aug, [facility] [place] [facility] [address] [id number] [place] [address]- 3726 Aug, [facility] [place] [facility] [address] [id number] [place] [address]- 7926 Mar, [facility] [place] [facility] [address] [id number] [place] [address]- 9708 Apr, [facility] [place] [facility] [address] [id number] [place] [address]- 5931 Apr, [facility] [place] [facility] [address] [facility] [id number] [place] [address]- 2546 Dec, [facility] [address] [facility] [id number] [address] 5916 Nov, [facility] [address] [facility] [id number] [address] 2546 October, [facility] [address] [facility] [id number], [place] [address] 6596 October, IMMUNIZATIONS No Known Immunizations SOCIAL HISTORY Never Assessed REASON FOR VISIT PLAN OF CARE VITAL SIGNS MEDICATIONS Medication Instructions Dosage Frequency Start Date End Date Duration Status PredniSONE 20 mg Orally twice a day 1 tablet 12h Jan, Jan, 05 days Active Cyclobenzaprine HCl 10 mg Orally 2 times a day prn 1 tablet as needed Jan, Jan, 28 days Active RESULTS No Results PROCEDURES No Known procedures INSTRUCTIONS MEDICATIONS ADMINISTERED No Known Medications MEDICAL (GENERAL) HISTORY Type Description Date Medical History Mitral Valve Prolapse Surgical History tubal 1991 Surgical History parotid tumor left side 1996 Hospitalization History parotid tumor 1996
--- OUTSIDE RECORDS SUMMARY | 2018-04-07 07:56 | XMS REPORT ---
Author Author YESENIA IRIZARRY [facility] Address [address] [place] [address] Care Team Providers Care Hot End Operator Name Role Phone WANDA IRIZARRYYL Unavailable PROBLEMS Type Condition ICD9-CM Code EJG65-OU Code Onset Dates Condition Status SNOMED Code Problem PPV23 (PNEUMOVAX) DX V03.82 Active 22399654 Problem Need for prophylactic vaccination and inoculation, Influenza V04.81 Active 806170832 Problem ZOSTAVAX DX V05.8 Active 89145563 Problem DTAP TEST V06.1 Active ALLERGIES No Information ENCOUNTERS Encounter Location Date Diagnosis [facility] [address] [address] October, [facility] [address] [address]- 6098 Jul, Dental examination Z01.20 [facility] [address] [id number] Jul, Dental caries K02.9 and Tooth fracture with loss of restorative material K08.531 [facility] [address] [id number] Jun, Dental examination Z01.20 [facility] [address] [address]- 5381 Jun, [facility] [address] [id number] Jun, Pneumonia of left upper lobe due to infectious organism J18.1 ; BMI 40.0-44.9, adult Z68.41 and Cough R05 [facility] [address] 00[address]- 9190 Apr, [facility] [id number] [id number] Mar, Encounter for immunization Z23 [facility] [id number] [place] [address] 40620- 2546 Jan, [facility] [address] [place] [address] 59984- 2546 Jul, Dental examination Z01.20 [facility] [id number] [place] [address] [id number] Jul, Encounter for immunization Z23 [facility] [id number] [place] [address] [phone] Mar, Encounter for immunization Z23 [facility] [id number] [place] [address] 55358- 2546 Dec, Visit for TB skin test Z11.1 [facility] [id number] [place] [address] [phone] October, Other specified disorders of Eustachian tube, unspecified ear H69.80 and Chronic serous otitis media of both ears H65.23 [facility] [id number] [place] [address] 39339- 7426 October, [facility] [id number] [place] [address] 59450- 3946 Sep, Osteoarthritis of right knee M17.9 [facility] [address] [place] [address] 75194- 5056 Aug, [facility] [address] [id number] Aug, Encounter for dental examination Z01.20 [facility] [address] [place] [address] [phone] May, Encounter for dental examination Z01.20 [facility] [address] [id number] May, Dental examination Z01.20 [facility] [address] [address]- 2577 Mar, Encounter for immunization Z23 [facility] [id number] [place] [address] 75937- 7276 Mar, [facility] [id number] [place] [address] 92523- 3223 Mar, Edema, unspecified R60.9 [facility] [id number] [place] [address] [id number] Feb, Dental examination V72.2 [facility] [id number] [place] [address] 81405- 6771 Jan, Pain in right knee 719.46 and Fall at home E888.9 [facility] [id number] [place] [address] 80938- 7663 Jan, [facility] [id number] [place] [address] 23741- 1027 Jan, Knee pain, right 719.46 [facility] [id number] [place] [address] 92762- 4201 Jan, Knee pain, right 719.46 [facility] [id number] [place] [address] 25979- 2698 Jan, Arthritis of left hand 716.94 [facility] [address] [place] [address] [phone] Dec, Dental examination V72.2 [facility] [address] [place] [address] 89667- 4753 Sep, [facility] [id number] [place] [address] 95542- 3379 Sep, [facility] [id number] [place] [address] 93813- 1741 Jul, [facility] [id number] [place] [address] 75140- 4617 Jul, [facility] [place] [facility] [address] [id number] [place] [address]68 Jul, [facility] [place] [facility] [address] [id number] [place] [address]- 2487 Jul, [facility] [place] [facility] [address] [id number] [place] [address]- 9843 May, [facility] [place] [facility] [address] [id number] [place] [address]- 9879 May, [facility] [place] [facility] [address] [id number] [place] [address]- 5766 Feb, [facility] [place] [facility] [address] [id number] [place] [address]- 4148 Feb, [facility] [place] [facility] [address] [id number] [place] [address]- 5709 October, [facility] [place] [facility] [address] [id number] [place] [address]- 8609 October, [facility] [place] [facility] [address] [id number] [place] [address]- 8308 October, [facility] [place] [facility] [address] [id number] [place] [address]- 8942 October, [facility] [place] [facility] [address] [id number] [place] [address]- 8214 October, [facility] [place] [facility] [address] [id number] [address]- 6440 Aug, [facility] [place] [facility] [address] [id number] [place] [address]- 9147 Aug, [facility] [place] [facility] [address] [id number] [place] [address]- 8767 Mar, [facility] [place] [facility] [address] [id number] [place] [address]- 7944 Apr, [facility] [place] [facility] [address] [facility] [id number] [place] [address]- 2546 Apr, [facility] [address] [facility] [id number], [place] [address] 2546 Dec, [facility] [address] [facility] [id number] [address]- 2546 Nov, [facility] [address] [facility] [id number], [place] [address] 2546 October, [facility] [address] [facility] [id number], [place] [address] 2546 October, IMMUNIZATIONS No Known Immunizations SOCIAL HISTORY Never Assessed REASON FOR VISIT nausea PLAN OF CARE VITAL SIGNS MEDICATIONS Medication Instructions Dosage Frequency Start Date End Date Duration Status Zofran 8 MG Orally q 8 hours prn nausea 1 tablet Apr, 10 days Active RESULTS No Results PROCEDURES No Known procedures INSTRUCTIONS MEDICATIONS ADMINISTERED No Known Medications MEDICAL (GENERAL) HISTORY Type Description Date Medical History Mitral Valve Prolapse Surgical History tubal 1991 Surgical History parotid tumor left side 1996 Hospitalization History parotid tumor 1996
--- OUTSIDE RECORDS SUMMARY | 2018-04-07 07:56 | XMS REPORT ---
Author Author DASH NORTH Organization [employer] Address Unknown Phone Unavailable Care Team Providers Care Outside Machinist Helper Name Role Phone DASH NORTH CP Unavailable Allergies No Known Allergies Problems Problem Type Condition ICD-9 Code Onset Dates Condition Status Problem ZOSTAVAX DX V05.8 Active Problem Need for prophylactic vaccination and inoculation, Influenza V04.81 Active Problem PPV23 (PNEUMOVAX) DX V03.82 Active Problem DTAP TEST V06.1 Active Assessment Dental examination V72.2 Active Medications No Known Medications Procedures Procedure Coding System Code Date Billing Notes on claim CPT-4 EC109 Feb 16, 2015 [facility] Employee/Board adjustment CPT-4 [facility] Feb 16, 2015 EXTRAC ERUPTED TOOTH/EXPOSED ROOT CPT-4 D7140 Feb 16, 2015 Results No Known Results Summary Purpose [employer] Submission
--- OUTSIDE RECORDS SUMMARY | 2018-04-07 07:56 | XMS REPORT ---
Author Author ROBEL KILPATRICK Organization [facility] Address [address] [place] [address] Care Team Providers Care Manager Of Maintenance Name Role Phone GABRIELE KILPATRICKLYN Unavailable PROBLEMS Type Condition ICD9-CM Code [id number] Code Onset Dates Condition Status SNOMED Code Problem Dental examination Z01.20 Active 268189919 Problem PPV23 (PNEUMOVAX) DX V03.82 Active Problem DTAP TEST V06.1 Active Problem Need for prophylactic vaccination and inoculation, Influenza V04.81 Active 027113313 Problem ZOSTAVAX DX V05.8 Active 82353086 ALLERGIES Substance Reaction Event Type Date Status Penicillin V Potassium Unknown Drug Allergy Jul, Active SOCIAL HISTORY Never Assessed PLAN OF CARE Activity Details Follow Up jonnathan Reason:restorative do #21 VITAL SIGNS Blood pressure systolic 122 mmHg 2016-08-06 Blood pressure diastolic 70 mmHg 2016-08-06 MEDICATIONS Unknown Medications RESULTS No Results PROCEDURES Procedure Date Ordered Result Body Site INTRAORL-PERIAPICAL 1 FILM 94330 Aug 06, 2016 INTRAORL-PERIAPICAL EA ADD FILM Aug 06, 2016 Billing Notes on claim Aug 06, 2016 BITEWINGS - FOUR FILMS Aug 06, 2016 INTRAORL-PERIAPICAL EA ADD FILM Aug 06, 2016 [facility] Employee/Board adjustment Aug 06, 2016 Periodontal maint procedures Aug 06, 2016 IMMUNIZATIONS No Known Immunizations MEDICAL (GENERAL) HISTORY Type Description Date Medical History Mitral Valve Prolapse Surgical History tubal 1992 Surgical History partiod tumor left side 1996
--- OUTSIDE RECORDS SUMMARY | 2018-04-07 07:56 | XMS REPORT ---
Author LEROY Hassan [facility] [employer] Address Unknown Phone Unavailable Care Team Providers Care Therapeutic Recreation Director Name Role Phone LEROY VARGAS CP Unavailable Allergies No Known Allergies Problems Problem Type Condition ICD-9 Code Onset Dates Condition Status Problem ZOSTAVAX DX V05.8 Active Problem Need for prophylactic vaccination and inoculation, Influenza V04.81 Active Problem PPV23 (PNEUMOVAX) DX V03.82 Active Problem DTAP TEST V06.1 Active Assessment Knee pain, right 719.46 Active Medications No Known Medications Results No Known Results Summary Purpose [employer] Submission
--- OUTSIDE RECORDS SUMMARY | 2018-04-07 07:56 | XMS REPORT ---
Author Author YESENIA IRIZARRY [facility] [employer] Address Unknown Phone Unavailable Care Team Providers Care Blogs Manager Name Role Phone YESENIA IRIZARRY CP Unavailable Allergies No Known Allergies Problems Problem Type Condition Code Onset Dates Condition Status Problem ZOSTAVAX DX V05.8 Active Problem Need for prophylactic vaccination and inoculation, Influenza V04.81 Active Problem PPV23 (PNEUMOVAX) DX V03.82 Active Problem DTAP TEST V06.1 Active Assessment Edema, unspecified R60.9 Active Medications No Known Medications Procedures Procedure Coding System Code Date VENIPUNCT, ROUTINE* CPT-4 66812 Mar 22, 2015 COMPREHEN METABOLIC PANEL CPT-4 11827 Mar 22, 2015 Results Name Result Date Reference Range Unit Abnormality Flag ROUTINE VENIPUNCTURE Summary Purpose [employer] Submission
--- OUTSIDE RECORDS SUMMARY | 2018-04-07 07:56 | XMS REPORT ---
Author Author YESENIA IRIZARRY Organization [employer] Address Unknown Phone Unavailable Care Team Providers Care Dough Mixer Name Role Phone YESENIA IRIZARRY CP Unavailable [...]
--- OUTSIDE RECORDS SUMMARY | 2018-04-07 07:57 | XMS REPORT | Continuity of Care Document ---
Author Author [facility] Ctr of [facility] Ctr of [facility] Address Unknown Phone Unavailable Allergies Active Description Code Type Severity Reaction Onset Reported/Identified Relationship to Patient Clinical Status Yes PENICILLINS UNKNOWN UNKNOWN Yes Penicillins [id number] Drug Allergy Unknown ANAPHYLAXIS 02/08/2015 Medications There is no data. Problems Date Dx Coded Attending Type Code Diagnosis Diagnosed By 04/14/2012 V04.81 FLU DX (3 YRS AND ABOVE, IM) 04/14/2012 LEROY VARGAS DO V04.81 FLU DX (3 YRS AND ABOVE, IM) 04/14/2012 EDIE PALACIO, YESENIA A V04.81 FLU DX (3 YRS AND ABOVE, IM) 04/14/2012 SHAWNE SLIDE FASTENERS INSPECTOR, YESENIA A V04.81 FLU DX (3 YRS AND ABOVE, IM) 04/14/2012 RAJQUINCYE SLIDE FASTENERS INSPECTOR, YESENIA A V04.81 FLU DX (3 YRS AND ABOVE, IM) 10/29/2013 EDIE SLIDE FASTENERS INSPECTOR, YESENIA A V06.1 TDAP DX 10/29/2013 EDIE SLIDE FASTENERS INSPECTOR, YESENIA A V06.1 TDAP DX 10/29/2013 EDIE SLIDE FASTENERS INSPECTOR, YESENIA A V06.1 TDAP DX 05/12/2014 EDIE PALACIO YESENIA A V03.82 PCV-13 (PREVNAR) DX 05/12/2014 EDIE PALACIO YESENIA A V05.8 ZOSTAVAX DX 02/09/2015 LEROY VARGAS DO Ot 715.36 02/09/2015 LEROY VARGAS DO Ot 717.42 02/09/2015 LEROY VARGAS DO Ot 717.43 02/09/2015 LEROY VARGAS DO Ot 727.51 02/09/2015 HEVER RICHARDS, DONNY Allen Ot 717.7 CHONDROMALACIA PATELLAE 02/09/2015 HEVER RICHARDS, DONNY Allen Ot 733.92 CHONDROMALACIA 02/09/2015 DONNY KATHLEEN MD Ot 836.0 TEAR MED MENISC KNEE-CUR 02/09/2015 DONNY KATHLEEN MD Ot 836.1 TEAR LAT MENISC KNEE-CUR 02/09/2015 DONNY KATHLEEN MD Ot E000.8 OTHER EXTERNAL CAUSE STATUS 02/09/2015 DONNY KATHLEEN MD Ot E885.9 FALL FROM SLIPPING, TRIPPING, OR STUMBLI 02/09/2015 DONNY KATHLEEN MD Ot V57.1 PHYSICAL THERAPY NEC 02/24/2015 VARGAS DO, LEROY K Ot 715.36 02/24/2015 VARGAS DO, LEROY K Ot 717.42 02/24/2015 VARGAS DO, LEROY K Ot 717.43 02/24/2015 VARGAS DO, LEROY K Ot 727.51 11/06/2017 VARGAS DO, LEROY K Ot 715.36 LOC OSTEOARTH NOS-L/LEG 11/06/2017 VARGAS DO, LEROY K Ot 717.42 DERANGE ANT LAT MENISCUS 11/06/2017 VARGAS DO, LEROY K Ot 717.43 DERANG POST LAT MENISCUS 11/06/2017 VARGAS DO, LEROY K Ot 727.51 POPLITEAL SYNOVIAL CYST 11/06/2017 DONNY KATHLEEN MD Ot 717.40 DERANG LAT MENISCUS NOS 11/06/2017 DONNY KATHLEEN MD Ot V72.83 EXAM PRE-OPERATIVE NEC 11/06/2017 DONNY KATHLEEN MD Ot V74.8 SCREEN-BACTERIAL DIS NEC 11/12/2017 YESENIA IRIZARRY EXTRACTOR FILLER Ot Z12.31 ENCNTR SCREEN MAMMOGRAM FOR MALIGNANT NE 11/12/2017 YESENIA IRIZARRY EXTRACTOR FILLER Ot Z12.31 ENCNTR SCREEN MAMMOGRAM FOR MALIGNANT NE 11/17/2017 YESENIA IRIZARRY EXTRACTOR FILLER Ot Z12.31 ENCNTR SCREEN MAMMOGRAM FOR MALIGNANT NE 11/29/2017 STEFAN SAENZ MD Ot Z01.818 ENCOUNTER FOR OTHER PREPROCEDURAL EXAMIN 11/29/2017 STEFAN SAENZ MD Ot Z01.818 ENCOUNTER FOR OTHER PREPROCEDURAL EXAMIN 11/29/2017 STEFAN SAENZ MD Ot Z01.818 ENCOUNTER FOR OTHER PREPROCEDURAL EXAMIN 12/06/2017 STEFAN SAENZ MD Ot D12.2 BENIGN NEOPLASM OF ASCENDING COLON 12/06/2017 STEFAN SAENZ MD Ot E66.9 OBESITY, UNSPECIFIED 12/06/2017 STEFAN SAENZ MD Ot K57.30 DVRTCLOS OF LG INT W/O PERFORATION OR AB 12/06/2017 STEFAN SAENZ MD Ot K62.1 RECTAL POLYP 12/06/2017 STEFAN SAENZ MD Ot Z12.11 ENCOUNTER FOR SCREENING FOR MALIGNANT NE 12/06/2017 STEFAN SAENZ MD Ot Z68.41 BODY MASS INDEX (BMI) 40.0-44.9, ADULT 12/06/2017 STEFAN SAENZ MD Ot Z87.891 PERSONAL HISTORY OF NICOTINE DEPENDENCE 12/10/2017 STEFAN SAENZ MD Ot D12.2 BENIGN NEOPLASM OF ASCENDING COLON 12/10/2017 STEFAN SAENZ MD Ot E66.9 OBESITY, UNSPECIFIED 12/10/2017 STEFAN SAENZ MD, Ot K57.30 DVRTCLOS OF LG INT W/O PERFORATION OR AB 12/10/2017 STEFAN SAENZ MD Ot K62.1 RECTAL POLYP 12/10/2017 STEFAN SAENZ MD Ot Z12.11 ENCOUNTER FOR SCREENING FOR MALIGNANT NE 12/10/2017 STEFAN SAENZ MD Ot Z68.41 BODY MASS INDEX (BMI) 40.0-44.9, ADULT 12/10/2017 STEFAN SAENZ MD Ot Z87.891 PERSONAL HISTORY OF NICOTINE DEPENDENCE 01/31/2018 VARGAS DO, LEROY K Ot 715.36 LOC OSTEOARTH NOS-L/LEG 01/31/2018 THERESA VARGAS DOA K Ot 717.42 DERANGE ANT LAT MENISCUS 01/31/2018 SAM LOPEZ LEROY K Ot 717.43 DERANG POST LAT MENISCUS 01/31/2018 SAM LOPEZ LEROY K Ot 727.51 POPLITEAL SYNOVIAL CYST 01/31/2018 DONNY KATHLEEN MD Ot 717.40 DERANG LAT MENISCUS NOS 01/31/2018 HEVER RICHARDS, DONNY Allen Ot V72.83 EXAM PRE-OPERATIVE NEC 01/31/2018 HEVER RICHARDS, DONNY Allen Ot V74.8 SCREEN-BACTERIAL DIS NEC 01/31/2018 YESENIA IRIZARRY Ot Z12.31 ENCNTR SCREEN MAMMOGRAM FOR MALIGNANT NE 02/20/2018 YADIRA TRACY MD Ot E04.1 NONTOXIC SINGLE THYROID NODULE 02/20/2018 YADIRA TRACY MD Ot K76.0 FATTY (CHANGE OF) LIVER, NOT ELSEWHERE C 02/20/2018 YADIRA TRACY MD Ot K80.20 CALCULUS OF GALLBLADDER W/O CHOLECYSTITI 02/20/2018 YADIRA TRACY MD Ot R07.9 CHEST PAIN, UNSPECIFIED 03/18/2018 VARGAS DO, LEROY K Ot 715.36 LOC OSTEOARTH NOS-L/LEG 03/18/2018 VARGAS DO, LEROY K Ot 717.42 DERANGE ANT LAT MENISCUS 03/18/2018 VARGAS DO, LEROY K Ot 717.43 DERANG POST LAT MENISCUS 03/18/2018 VARGAS DO, LEROY K Ot 727.51 POPLITEAL SYNOVIAL CYST 03/18/2018 DONNY KATHLEEN MD Ot 717.40 DERANG LAT MENISCUS NOS 03/18/2018 DONNY KATHLEEN MD Ot V72.83 EXAM PRE-OPERATIVE NEC 03/18/2018 DONNY KATHLEEN MD Ot V74.8 SCREEN-BACTERIAL DIS NEC 03/18/2018 YESENIA IRIZARRY Ot Z12.31 ENCNTR SCREEN MAMMOGRAM FOR MALIGNANT NE 03/18/2018 YADIRA TRACY MD Ot E04.1 NONTOXIC SINGLE THYROID NODULE 03/18/2018 YADIRA TRACY MD Ot K76.0 FATTY (CHANGE OF) LIVER, NOT ELSEWHERE C 03/18/2018 YADIRA TRACY MD Ot K80.20 CALCULUS OF GALLBLADDER W/O CHOLECYSTITI 03/18/2018 YADIRA TRACY MD Ot R07.9 CHEST PAIN, UNSPECIFIED 03/24/2018 Krystal VERDUGO MD Ot E66.01 MORBID (SEVERE) OBESITY DUE TO EXCESS CA 03/24/2018 Krystal VERDUGO MD Ot E78.5 HYPERLIPIDEMIA, UNSPECIFIED 03/24/2018 Krystal VERDUGO MD Ot I10 ESSENTIAL (PRIMARY) HYPERTENSION 03/24/2018 Krystal VERDUGO MD Ot R07.89 OTHER CHEST PAIN 03/24/2018 Krystal VERDUGO MD Ot R73.03 PREDIABETES 03/24/2018 Krystal VERDUGO MD Ot R94.31 ABNORMAL ELECTROCARDIOGRAM [ECG] [EKG] 03/24/2018 Krystal VERDUGO MD, Ot Z68.41 BODY MASS INDEX (BMI) 40.0-44.9, ADULT 03/31/2018 Krystal VERDUGO MD Ot E66.01 MORBID (SEVERE) OBESITY DUE TO EXCESS CA 03/31/2018 Krystal VERDUGO MD, Ot E78.5 HYPERLIPIDEMIA, UNSPECIFIED 03/31/2018 Krystal VERDUGO MD Ot I10 ESSENTIAL (PRIMARY) HYPERTENSION 03/31/2018 Krystal VERDUGO MD, Ot R07.89 OTHER CHEST PAIN 03/31/2018 Krystal VERDUGO MD, Ot R73.03 PREDIABETES 03/31/2018 Krystal VERDUGO MD, Ot R94.31 ABNORMAL ELECTROCARDIOGRAM [ECG] [EKG] 03/31/2018 Krystal VERDUGO MD, Ot Z68.41 BODY MASS INDEX (BMI) 40.0-44.9, ADULT Procedures Code Description [place] [address] TB TEST INTRADERMAL 11/04/2013 Results Test Result Range Thyroid Stimulating Hormone - 03/10/18 14:40 TSH 0.82 mIU/mL 0.32-5.00 Encounters ACCT No. Visit Date/Time Discharge Status Pt. Type Provider Facility Loc./Unit Complaint [id number] 05/12/2014 10:34:00 05/12/2014 23:59:59 [facility] Outpatient YESENIA IRIZARRY APRN [id number] 03/09/2014 14:56:00 03/09/2014 23:59:59 [facility] Outpatient YESENIA IRIZARRY APRN [id number] 10/29/2013 13:57:00 10/29/2013 23:59:59 [facility] Outpatient YESENIA IRIZARRY APRN [id number] 03/13/2013 11:55:00 03/13/2013 23:59:59 [place] [id number] 04/14/2012 08:25:00 04/14/2012 23:59:59 [facility] Outpatient [id number] 08/07/2017 16:45:00 08/07/2017 23:59:59 CLS Outpatient Kristie Knox [facility] [id number] 03/10/2018 14:37:00 03/10/2018 23:59:00 DIS Outpatient Kristie Knox [id number] 03/09/2018 00:00:00 03/09/2018 23:59:00 DIS Outpatient Kristie Knox [id number] 03/27/2018 07:31:00 03/27/2018 23:59:59 CLS Outpatient Krystal VERDUGO MD [facility] CARD ABNORMAL EKG [id number] 03/20/2018 09:32:00 03/20/2018 23:59:59 CLS Outpatient Krystal VERDUGO MD [facility] CARD ABNORMAL EKG [id number] 02/19/2018 15:45:00 02/19/2018 23:59:59 CLS Outpatient YADIRA TRACY MD [facility] RAD CHEST PAIN [id number] 12/06/2017 07:27:00 12/06/2017 10:35:00 DIS Outpatient STEFAN SAENZ MD [facility] ENDO SCREENING [id number] 11/29/2017 05:34:00 11/29/2017 13:41:00 DIS Outpatient STEFAN SAENZ MD [facility] PREOP COLONOSCOPY [id number] 11/11/2017 10:29:00 11/11/2017 23:59:59 CLS Outpatient YESENIA IRIZARRY [facility] RAD Z12.31 BREAST CANCER SCREENING BY MAMMOGRAM [id number] 02/09/2015 10:30:00 02/09/2015 14:40:00 DIS Outpatient DONNY KATHLEEN MD [facility] SDC TORN LATERAL MENISCUS W/CHRONDROMALSIA [id number] 02/08/2015 14:02:00 02/08/2015 23:59:59 CLS Outpatient DONNY KATHLEEN MD [facility] PREOP TORN LATERAL MENISCUS WITH CHRONDROMALSIA [id number] 02/04/2015 17:02:00 02/04/2015 23:59:59 CLS Outpatient LEROY VARGAS DO [facility] RAD RT KNEE PAIN [id number] 04/07/2018 13:00:00 PEN Preadmit LUCINA RICHARDS, Krystal GOLD [facility] CATH ABNORMAL STRESS TEST
[2018-04-07 08:22] LABS: HEMOGLOBIN 16.3 G/DL (11.5-16.0); MEAN PLATELET VOLUME 10.3 FL (7.4-10.4); RED BLOOD COUNT 5.05 10^6/uL (4.35-5.85); RED CELL DISTRIBUTION WIDTH 12.9 % (10.0-14.5); WHITE BLOOD COUNT 6.8 10^3/uL (4.3-11.0)
[2018-04-07] MEDS ORDERED: NS IV 1000 ML 1,000 ML ONE (08:31)
[2018-04-07] MEDS ORDERED: LIDOCAINE 1% INJ 20 ML 20 ML VIAL ONE (08:31)
[2018-04-07] MEDS ORDERED: HEParin (CATH LAB) 2,000 ML IV ONE (08:32)
[2018-04-07 08:33] LABS: INR 0.9 (0.8-1.4); PROTHROMBIN TIME PATIENT 12.4 SEC (12.2-14.7)
[2018-04-07 08:41] LABS: ALANINE AMINOTRANSFERASE 21 U/L (0-55); ALBUMIN 3.8 GM/DL (3.2-4.5); ALKALINE PHOSPHATASE 65 U/L (40-136); BILIRUBIN,TOTAL 0.5 MG/DL (0.1-1.0); BUN/CREATININE RATIO 17; CALCIUM 9.3 MG/DL (8.5-10.1); CARBON DIOXIDE 25 MMOL/L (21-32); CHLORIDE 106 MMOL/L (98-107); CREATININE SERUM 0.69 MG/DL (0.60-1.30); GFR ESTIMATED > 60; GLUCOSE 122 MG/DL (70-105); POTASSIUM 4.2 MMOL/L (3.6-5.0); SODIUM 140 MMOL/L (135-145); TOTAL PROTEIN 6.9 GM/DL (6.4-8.2)
[2018-04-07] MEDS ORDERED: NS IV 1000 ML 1,000 ML IV SCH ×2 (12:45→14:38)
[2018-04-07] MEDS ORDERED: MIDAZOLAM 5 MG/5 ML (VERSED) VIAL ONE (13:14)
[2018-04-07] MEDS ORDERED: fentaNYL INJECTION 100 MCG/2 ML AMP ONE (13:14)
[2018-04-07] MEDS ORDERED: HEParin 1000 UNIT/ML (10ML VIAL) FOR BOLUS ONE (13:50)
[2018-04-07] MEDS ORDERED: NITRO DRIP 25000 MCG/D5W 250 ML IV ONE (13:50)
[2018-04-07] MEDS ORDERED: VERAPAMIL 5 MG/2 ML (CALAN) VIAL IV ONE (13:50)
--- NOTE | 2018-04-07 14:40 | Cardiac Procedure Note-CS/ASA ---
Pre-Procedure Note Pre-Op Procedure Note H&P Reviewed The H&P was reviewed, patient examined and no changes noted. Date H&P Reviewed: Apr 07, 2018 Time H&P Reviewed: 13:15 Conscious Sedation Pre-Proced Time 13:15 ASA Score 3 For ASA 3 and 4: Consider anesthesia and medical clearance. Also, for patients with a history of failed moderate sedation consider anesthesia. Airway Lungs Heart ASA score ASA 1: a normal healthy patient ASA 2: a patient with a mild systemic disease (mid diabetes, controlled hypertension, obesity ASA 3: a patient with a severe systemic disease that limits activity (angina , COPD, prior Myocardial infarction) ASA 4: a patient with an incapacitating disease that is a constant threat to life (CHF, renal failure) ASA 5: a moribund patient not expected to survive 24 hrs. (ruptured aneurysm) ASA 6: a declared brain patient whose organs are being harvested. For emergent operations, add the letter E after the classification Mallampati Classification Grade 1 Sedation Plan Analgesia, Amnesia, Plan communicated to team members, Discussed options with patient/fam, Discussed risks with patient/fam The patient is an appropriate candidate to undergo the planned procedure, sedation, and anesthesia. The patient immediately re-assessed prior to indication. Krystal VERDUGO MD Apr 07, 2018 2:40 pm
--- NOTE | 2018-04-07 14:43 | Coronary Angiography Report ---
Coronary Angiography Report DATE OF PROCEDURE: 04/07/18 INDICATION: Recurrent chest pain, abnormal nuclear stress test. PREOPERATIVE DIAGNOSIS: Recurrent chest pain, abnormal nuclear stress test. POSTOPERATIVE DIAGNOSIS: Patent epicardial coronary arteries. HISTORY: This is a 62-year-old lady with recurrent chest pain episodes. She also had a reversible defect on her nuclear stress test. Therefore, the patient was scheduled for coronary angiography. PROCEDURES PERFORMED: 1.Coronary angiography. 2.Left heart catheterization. 3. Aortic arch angiogram. COMPLICATIONS: None. SPECIMENS: None. ESTIMATED BLOOD LOSS: 10 mL ANESTHESIA: Conscious sedation ANTICOAGULATION: IV heparin CONTRAST: 65 mL. FLUOROSCOPY: 5.8 minutes. FLOUROSCOPY DOSE: 544 mgy. PROCEDURE DETAILS: The patient is a 62 female and was brought to the labor relations director after informed consent was taken. All the risks and complications were explained in detail; this included the risk of bleeding, vascular damage, stroke , RI and even . The patient was draped and prepped in the usual sterile fashion. Access was gained in the right radial artery with a 6 Maltese sheath. Coronary angiography and left heart catheterization was performed with the [place] catheter. Left coronary system was engaged with a JL4 catheter. FINDINGS: 1.Left main: Patent. 2.LAD: Patent. 3.Left circumflex artery: Patent. 4.RCA: Patent. 5.Left heart catheterization: Aortic pressure 129/77 mmHg. LV pressure 124/14 mmHg. LVEDP 20 mmHg. Normal LV function with no wall motion abnormalities. No gradient across the aortic valve. 6. Aortic arch angiogram: No evidence of dissection or aneurysm. Patent proximal segments of the great arteries including brachiocephalic artery, common carotid artery, left subclavian artery. CONCLUSIONS: Patent epicardial coronary arteries. Continue primary prevention measures. Elevated LVEDP suggest increased filling pressure likely due to untreated hypertensive heart disease. Nikunj Oneal MD, FACP, FACC, [facility] Interventional Cardiology Krystal ONEAL MD Apr 07, 2018 2:43 pm
[2018-04-07] MEDS ORDERED: PATIENT MAY USE OWN MEDS, ALL PO SCH (14:45)
--- NOTE | 2018-04-07 14:45 | Discharge Inst-Post CATH ---
Discharge Inst-CATH Post Cardiac Cath D/C Inst Follow Up/Plan Dr. Oneal in a month. CARDIAC CATH DISCHARGE INSTRUCTIONS *Hold Metformin for 48 hours post heart cath. ACTIVITY * Go Home directly and rest. * Limit activity of the leg (or wrist if it was used) for 7 days including aerobics, swimming, jogging, bicycling, etc. * Restrict stair-climbing for 7 days if possible, if not, climb up with your non -cath leg, then bring together on the same step. * Avoid lifting, pushing, pulling or excessive movement of the affected extremity for 7 days. * Customary sexual activity may be resumed after 2 days-use caution not to use a position that strains or causes pain to the affected extremity. * No driving for 24 hours. * NO SMOKING. * Avoid straining for bowel movements for 7 days. * Gentle walking on level ground is allowed. * Returning to work will depend on the type of procedure and the results. Your doctor will discuss this with you. CALL YOUR DOCTOR FOR ANY OF THE FOLLOWING: *If bleeding from the puncture site occurs- Apply gentle pressure to site with clean cloth and call your doctor or EMS. * If a knot or lump forms under the skin, increases in size, or causes pain. * If bruising appears to be worsening or moving further down your leg instead of disappearing. * Temperature above 101 F. CARE OF YOUR GROIN INCISION; * Bruising or purple discoloration of the skin near the puncture site is common. * You may shower only, no bathtub bathing for 5 days. Be careful to avoid slipping as your leg may feel stiff. * If a closure device was used on your femoral artery, please see the attached guide regarding care of the device and your leg. * Leave the dressing on, until removed by office staff. CARE OF YOUR WRIST INCISION; * Bruising or purple discoloration of the skin near the puncture site is common. * You may shower. * DO NOT submerge wrist. * Leave dressing on, until removed by office staff.. Krystal ONEAL MD Apr 07, 2018 2:45 pm
--- NOTE | 2018-04-07 14:47 | Cardiology Discharge Summary ---
Diagnosis/Chief Complaint Date of Admission 04/07/2018 Date of Discharge 04/07/2018 Admission Diagnosis Recurrent chest pain, abnormal nuclear stress test. Final/Discharge Diagnosis Patent epicardial coronary arteries Chief Complaint/HPI Chief Complaint/HPI This is a 62-year-old lady with recurrent chest pain episodes. She also had a reversible defect on her nuclear stress test. Therefore, the patient was scheduled for coronary angiography. Discharge Summary Procedures Coronary angiography showed patent epicardial coronary arteries. Elevated LVEDP suggested likely increased filling pressures due to untreated hypertensive heart disease. Discharge Physical Examination Unremarkable. Hospital Course Stable. Pending Labs Laboratory Tests 04/07/18 08:15: White Blood Count 6.8, Red Blood Count 5.05, Hemoglobin 16.3, Hematocrit 48, Mean Corpuscular Volume 95, Mean Corpuscular Hemoglobin 32, Mean Corpuscular Hemoglobin Concent 34, Red Cell Distribution Width 12.9, Platelet Count 182, Mean Platelet Volume 10.3, Prothrombin Time 12.4, INR Comment 0.9, Activated Partial Thromboplast Time 26, Sodium Level 140, Potassium Level 4.2, Chloride Level 106, Carbon Dioxide Level 25, Anion Gap 9, Blood Urea Nitrogen 12, Creatinine 0.69, Estimat Glomerular Filtration Rate > 60, BUN/Creatinine Ratio 17, Glucose Level 122, Calcium Level 9.3, Corrected Calcium 9.5, Total Bilirubin 0.5, Aspartate Amino Transf (AST/SGOT) 19, Alanine Aminotransferase ( ALT/SGPT) 21, Alkaline Phosphatase 65, Total Protein 6.9, Albumin 3.8 Discussion & Recommendations Discussion Discharge instructions discussed at length with the patient. Follow up appt.: Dr. Oneal in one month. Dicharge Diet: Cardiac Diet Activity as Tolerated: Yes Home Medications Reviewed patient Home Medication Reconciliation performed by pharmacy medication reconciliations computer repair technician and/or nursing. Patients Allergies have been reviewed. Discharge Home Medications: Reviewed and agree with Discharge Medication list on patient's Discharge Instruction sheet Condition at discharge Stable. Instructions to patient/family Dr. Oneal in a month. Krystal ONEAL MD Apr 07, 2018 2:47 pm
== END 2018-04-07 17:45 | disposition home or self-care (01) ==
LOC: CATH 07:51 → SDC 14:36 → CATH 17:45
PROVIDERS: ATTEND Internal Medicine Interventional Cardiology
DX: R07.9 Chest pain, unspecified (principal); I10 Essential (primary) hypertension; E78.5 Hyperlipidemia, unspecified; R73.9 Hyperglycemia, unspecified; E66.01 Morbid (severe) obesity due to excess calories; Z87.891 Personal history of nicotine dependence
CPT/HCPCS: 36221; 36415; 80053; 85027; 85610; 85730; 87081; 93458

== ENCOUNTER → 2018-11-17 | Outpatient (CLI) | payer OTHER ==
--- NOTE | 2018-11-17 23:13 | Diagnostic Imaging Report ---
PROCEDURE: MRI lumbar spine. TECHNIQUE: Multiplanar, multisequence MRI of the lumbar spine was performed without contrast. INDICATION: Right knee pain, right lower leg numbness. There are no prior studies available for comparison. FINDINGS: The coronal localization images show mild curvature of the lower lumbar spine, convex to the right. The T2 sagittal images reveal that there is desiccation of the disc at every level with narrowing of disc spaces at each level, particularly at L3-L4, L4-L5 and L5-S1. At the L1-L2 level, there is a disc bulge centrally which flattens the ventral aspect of the thecal sac and narrows the AP diameter to 11.0 MM. There is no significant neural foraminal narrowing at this level. At the L2-L3 level, there is fairly severe trefoil stenosis. The AP diameter of thecal sac is narrowed to 6.8 MM and there is mild narrowing of the neural foramen bilaterally. At L3-L4, there is a broad-based disc bulge eccentric to the left. The AP diameter of thecal sac is narrowed to 9.9 MM. There is also moderate narrowing of the neural foramen on the left at this level. At L4-L5, there is a broad-based disc bulge centrally. The AP diameter of the thecal sac is narrowed to 15.2 MM. There is mild narrowing of the neural foramen on the right. At L5-S1, the AP diameter of thecal sac measures 15.6 MM. There is [id number] narrowing of the neural foramen on the right at this level. There is no abnormal signal arising from the cord or the vertebral bodies to indicate an acute abnormality. IMPRESSION: 1. 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 The L2-L3 level is the most severely affected as there is trefoil stenosis at this level with mild narrowing of the neural foramen bilaterally. There is also borderline central stenosis at L3-L4 with moderate narrowing of the neural foramen on the left. 2. There is no acute bony abnormality appreciated. There is no sign of a cord lesion either. Dictated by: Dictated on workstation # [id number]
== END ==
LOC: RAD 15:25
PROVIDERS: ATTEND Psychiatry & Neurology Neurology
DX: M51.36 Other intervertebral disc degeneration, lumbar region (principal); M24.28 Disorder of ligament, vertebrae; M48.061 Spinal stenosis, lumbar region without neurogenic claudication; M89.9 Disorder of bone, unspecified
CPT/HCPCS: 72148

== ENCOUNTER → 2019-05-04 | Outpatient (CLI) | payer MEDICAID, OTHER ==
--- NOTE | 2019-05-04 16:03 | Diagnostic Imaging Report ---
PROCEDURE: CT abdomen and pelvis without contrast. TECHNIQUE: Multiple contiguous axial images were obtained through the abdomen and pelvis without the use of intravenous contrast. Auto Exposure Controls were utilized during the CT exam to meet ALARA standards for radiation dose reduction. INDICATION: Hematuria. FINDINGS: There are no prior CT abdomen/pelvis exams available for comparison. The CT chest exam of 02/19/2018 did note a small amount of sludge and/or calculi within the gallbladder. On this exam, however, there are now at least two roughly 1 cm gallstones. There is no sign of acute cholecystitis, but if further study is desired, then ultrasound would be recommended. The liver, spleen, pancreas, adrenals, aorta, and inferior vena cava show no sign of an acute abnormality. The stomach is partially filled with fluid and consequently difficult to assess. There is no evidence for nephrolithiasis or urolithiasis, and the kidneys do not appear to be obstructed. There is no sign of a solid renal mass either. The urinary bladder is grossly unremarkable. The uterus does not appear to be enlarged. The appendix was not well visualized, but there are no indirect signs of acute appendicitis. There are a few diverticula in the sigmoid colon. There is slight distortion of the pericolonic fat in this area. This could be secondary to a previous episode of inflammation/infection. The possibility that there is an element of mild acute diverticulitis should also be considered. The bone windows show no evidence for a fracture or for a destructive lesion. There is fairly severe degenerative disc and bony disease at L2-L3, L3-L4, L4-L5, and L5-S1. There is also trefoil stenosis at L2-L3, L3-L4, and L4-L5. There also appears to be borderline trefoil stenosis at L1-L2. The lung bases are clear. IMPRESSION: 1. In the interval since the prior exam, two roughly 1 cm gallstones have developed within the gallbladder. There is no evidence for acute cholecystitis, however. If further study is desired, then ultrasound would be recommended. 2. The slight distortion of the pericolic fat adjacent to the diverticula in the mid portion of the sigmoid colon may be related to a prior episode of inflammation/infection. The possibility that there is an element of mild acute diverticulitis should still be considered. Clinical follow-up is recommended. 3. There is no acute abnormality of the abdomen or pelvis noted otherwise. 4. There is no evidence of nephrolithiasis or urolithiasis, and the kidneys do not appear to be obstructed. 5. There is fairly severe degenerative disc and bony disease involving the lumbar spine as described above. Dictated by: Dictated on workstation # [id number]
== END ==
LOC: RAD 14:33
PROVIDERS: ATTEND Urology
DX: M47.817 Spondylosis without myelopathy or radiculopathy, lumbosacral region (principal); M51.37 Other intervertebral disc degeneration, lumbosacral region; R31.9 Hematuria, unspecified
CPT/HCPCS: 74176

== ENCOUNTER 2019-06-08 05:53 | Outpatient (CLI) | payer MEDICAID ==
[~2019-06-08] VITALS: Ht 175.3 cm; Wt 141.8 kg
[2019-06-08] MEDS ORDERED: LOSA100T57 PO (10:01)
== END 2019-06-08 10:15 | disposition home or self-care (01) ==
LOC: PREOP 05:53
PROVIDERS: ATTEND Surgery
DX: Z01.818 Encounter for other preprocedural examination (principal)

== ENCOUNTER 2019-10-08 13:34 | Outpatient (RCR) | payer MEDICAID, OTHER ==
[~2019-10-08 13:34] MED LIST changes: +ACHD5005 PO; +DOCU-143 PO; -HYDR-3062 PO; +LOSA100T57 PO
== END 2019-10-08 17:30 | disposition home or self-care (01) ==
PROVIDERS: ATTEND Physician Assistant
DX: M54.16 Radiculopathy, lumbar region (principal)

== ENCOUNTER → 2019-11-11 | Outpatient (CLI) | payer MEDICAID, OTHER ==
[2019-11-11 12:04] LABS: HEMOGLOBIN 15.7 G/DL (11.5-16.0); MEAN PLATELET VOLUME 10.1 FL (7.4-10.4); RED CELL DISTRIBUTION WIDTH 13.2 % (10.0-14.5)
[2019-11-11 12:09] LABS: BILIRUBIN,URINE NEGATIVE (NEGATIVE); CLARITY,URINE CLEAR; COLOR,URINE YELLOW; GLUCOSE, URINE (UA) NEGATIVE (NEGATIVE); KETONES,URINE NEGATIVE (NEGATIVE); LEUKOCYTE ESTERASE ,URINE NEGATIVE (NEGATIVE); NITRITE,URINE NEGATIVE (NEGATIVE); PROTEIN,URINE NEGATIVE (NEGATIVE)
[2019-11-11 12:13] LABS: CHLORIDE 106 MMOL/L (98-107)
[2019-11-11 12:14] LABS: ALBUMIN 3.6 GM/DL (3.2-4.5); POTASSIUM 4.1 MMOL/L (3.6-5.0); SODIUM 138 MMOL/L (135-145)
[2019-11-11 12:15] LABS: CALCIUM 8.8 MG/DL (8.5-10.1)
[2019-11-11 12:16] LABS: GLUCOSE 133 MG/DL (70-105); TOTAL PROTEIN 6.4 GM/DL (6.4-8.2); TRIGLYCERIDES 128 MG/DL (<150); VLDL CHOLESTEROL 26 MG/DL (5-40)
[2019-11-11 12:17] LABS: CARBON DIOXIDE 23 MMOL/L (21-32)
[2019-11-11 12:18] LABS: BILIRUBIN,TOTAL 0.7 MG/DL (0.1-1.0)
[2019-11-11 12:20] LABS: ALKALINE PHOSPHATASE 72 U/L (40-136); CREATININE SERUM 0.67 MG/DL (0.60-1.30); GFR ESTIMATED > 60
[2019-11-11 12:21] LABS: BUN/CREATININE RATIO 16; CHOLESTEROL 225 MG/DL (< 200)
[2019-11-11 12:22] LABS: HDL CHOLESTEROL 51 MG/DL (40-60)
[2019-11-11 12:23] LABS: ALANINE AMINOTRANSFERASE 19 U/L (0-55)
[2019-11-11 12:25] LABS: BACTERIA,URINE NEGATIVE /HPF
== END ==
LOC: LAB 11:45
PROVIDERS: ATTEND Family Medicine
DX: I10 Essential (primary) hypertension (principal)
CPT/HCPCS: 36415; 80053; 80061; 81000; 84443; 85027

== ENCOUNTER → 2020-02-11 | Outpatient (CLI) | payer MEDICAID ==
--- NOTE | 2020-02-11 20:15 | Diagnostic Imaging Report ---
INDICATION: Screening. At this time there are no current complaints. EXAMINATION: Bilateral digital screening mammogram with CAD. 3D tomographic images were obtained and reviewed. The current study was also evaluated with a Computer Aided Detection (CAD) system. COMPARISON: The study was compared to the prior exam of 11/11/2017. FINDINGS: There are scattered fibroglandular densities in both breasts which could obscure a lesion. Overall, there does not appear to have been any significant change when compared to the prior exam. No primary or secondary sign of malignancy is noted. IMPRESSION: 1. There is no radiographic evidence for malignancy. 2. The patient should have her annual screening mammogram on schedule in February of 2021. ACR BI-RADS Category 1: Negative. Result letter will be mailed to the patient. Note: At least 10% of breast cancer is not imaged by mammography. Dictated by: Dictated on workstation # [id number]
== END ==
LOC: RAD 10:30
PROVIDERS: ATTEND Family Medicine
DX: Z00.00 Encounter for general adult medical examination without abnormal findings (principal); Z12.31 Encounter for screening mammogram for malignant neoplasm of breast
CPT/HCPCS: 77063; 77067